=== PATIENT | male | born 1995 | race Caucasian/White ===

== ENCOUNTER 2024-03-09 09:55 | Outpatient (AMB) | payer OTHER, SELFPAY ==
--- NOTE | 2024-03-09 10:00 | MHC.PC.OV ---
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 ?? Prior PCP:? Dr Cuellar Last office visit/CPE:? CPE > 1 yr Acute issue(s):? Acid Reflux. Omeprazole helps but not fully. Saw GI. ?? PMHx:? GERD, SurgHx:?None FHx:? Dad: Early onset Dementia. Mom: HTN. SocHx: No Cig. Vapes occassioally. EtOH: Rarely 1-2 dr. MJ Daily edibles. No other drugs HPI Comments History of Present Illness Details Documentation assistance for Jovany Barrera MD, was provided by Tre Holland,? Supervisor Dog License Officer on 03/09/2024 at 10:45 AM EST. I, Dr. Barrera, have read, observed, and verified documentation. 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 1. Little interest or pleasure in doing things: not at all 2. Feeling down, depressed, or hopeless: not at all 3. Trouble falling or staying asleep, or sleeping too much: more than half the days 4. Feeling tired or having little energy: nearly every day 5. Poor appetite or overeating: not at all 6. Feeling bad about yourself - or that you are a failure or have let yourself or your family down: not at all 7. Trouble concentrating on things, such as reading the newspaper or watching television: more than half the days 8. Moving or speaking so slowly that other people could have noticed. Or the opposite - being so fidgety or restless that you have been moving around a lot more than usual: more than half the days 9. Thoughts that you would be better off or of hurting yourself in some way: not at all Total score: 9 Depression Screening Interpretation: Positive Depression Screening Done: Yes 49663 - PHQ-9 Billing: Yes Source: Developed by Drs. Keith Yee, Geena Cuevas, Noel Rolon and colleagues, with an educational sangeeta from [employer]. Thrive Questionnaire Date Thrive assessed: 03/02/24 I am a: Patient What is your living situation today?: I have a steady place to live Within the past 12 months, did the food you bought not last and you didn't have the money to get more?: Never true Within the past 12 months, did you worry whether your food would run out before you got money to buy more?: Never true Do you have trouble paying for medicines?: No Do you have trouble getting transportation to medical appointments?: No Do you have trouble paying your heating and electricity bill?: No Do you have trouble taking care of your child, family member or friend?: No Do you have trouble with day-to-day activities such as bathing, preparing meals, shopping, managing finances, etc.?: No Are you currently unemployed and looking for a job?: No Are you interested in more education?: No Please select the resources that you would like help with: None Currently or been in a relationship where the following occur: No concerns reported THRIVE Score: 0 AUDIT C Alcohol Use Questionnaire (AUDIT-C) 1. How often do you have a drink containing alcohol?: Monthly or less 2. How many drinks containing alcohol do you have on a typical day when you are drinking?: 1 or 2 3. How often do you have six or more drinks on one occasion?: Never Total Score: 1 REMINGTON-7 AMB Questionnaire REMINGTON-7 Date REMINGTON - 7 assessed: 03/09/24 Feeling nervous, anxious, or on edge: 2 = More than half the days Not being able to stop or control worryin = More than half the days Worrying too much about different things: 2 = More than half the days Trouble relaxin = Several days Being so restless that it is hard to sit still: 1 = Several days Becoming easily annoyed or irritable: 0 = Not at all Feeling afraid as if something awful might happen: 1 = Several days Total REMINGTON-7 score (0-4 normal; 5-9 mild; 10-14 moderate; 15-21 severe): 9 Source: Developed by Drs. Keith Yee, Geena Cuevas, Noel Rolon and colleagues, with an educational sangeeta from [employer]. REMINGTON-7 Assessment Billing REMINGTON-7 Assessment Tool: REMINGTON-7 Assessment 14249 Review of Systems Const Denies chills, Denies fatigue, Denies fever(s), Denies headache(s) and Denies weakness ENT Denies dizziness and Denies headache(s) Card Denies chest pain, Denies lightheadedness, Denies dyspnea and Denies other (Palpitations) Resp Denies cough, Denies dyspnea, Denies wheezing and Denies other ( shortness of breath) Musc Denies numbness and Denies tingling Neuro Denies dizziness, Denies headache(s), Denies numbness, Denies tingling, Denies paresthesias and Denies weakness Psych Denies anxiety and Denies depression Endo Denies fatigue Aller/Immun Denies wheezing Physical exam (Primary Care) Vital Signs: Last Vital Signs Pulse 73 03/09/24 10:05 BP 134/64 03/09/24 10:05 Pulse Ox 99 03/09/24 10:05 Oxygen Delivery Method Room Air 03/09/24 10:05 BMI result Body Mass Index 21.1 Tobacco/Smoking Status: Tobacco use Status Tobacco use date assessed 03/09/24 03/09/24 10:11 Patient Tobacco Use Status Never used Tobacco 03/09/24 10:11 e-Cigarette/Vaping Use Currently Using 03/09/24 10:11 PHQ-9: PHQ-9 Score PHQ-9: Total score 9 03/09/24 10:40 Depression Screening Interpretation: Positive Thrive Assessment: Date of Thrive Assessment Date Thrive assessed 03/02/24 03/09/24 10:11 Currently or been in a relationship where the following occur: No concerns reported Const General: no acute distress and well developed Nutritional Appearance: well nourished Orientation/consciousness: patient oriented x3 HENMT Head: Yes normocephalic and Yes atraumatic Eyes General: appearance normal, both eyes and all related structures Pupils: Equal, round and reactive pupils present EOM: EOMs intact bilaterally Resp Effort & Inspection: normal respiratory effort Auscultation: clear to auscultation bilaterally Cardio Rate: regular rate Rhythm: regular rhythm Heart sounds: S1 normal heart sound present, S2 normal heart sound present, no gallops, Murmur heart sound present (Faint 1/6 systolic murmur over the mitral region ) and no rubs Neuro General: patient oriented x3 and gait normal Cranial nerves: Yes Equal, round and reactive pupils present Psych Affect: normal affect Coding Level of Care Code New Pt Level 3 (82045) Diagnoses Anxiety with depression F41.8 Heart murmur R01.1 GERD (gastroesophageal reflux disease) K21.9 Laboratory exam ordered as part of routine general medical examination Z00.00 Additional Codes REMINGTON-7 Assessment Billing - REMINGTON-7 Assessment Tool: REMINGTON-7 Assessment 16765 ([id number]) PHQ-9 - 45173 - PHQ-9 Billing: Yes ([id number]) Assessment & Plan Assessment & Plan (1) Anxiety with depression: Code(s): F41.8 - Other specified anxiety disorders Category: Medical Plan: Screening?for?mild?anxiety?depression. Patient?is?using?MJ?every?day?I?advised?consider?that?this?may?be?affecting?mood We?can?follow-up?at?his?next?visit (2) Heart murmur: Code(s): R01.1 - Cardiac murmur, unspecified Category: Medical Plan: ? ?Faint?1/6?systolic?murmur?mitral?region Will?have?patient?hydrate?well?prior?to?next?visit?and?recheck. (3) GERD (gastroesophageal reflux disease): Code(s): K21.9 - Gastro-esophageal reflux disease without esophagitis Category: Medical Plan: Longstanding?history?of?GERD.??Patient?says?omeprazole?only?partially?manage?his?symptoms.?? He?has?seen?a?mysql developer?in?the?past?but?not?within?the?last?2?years. He?has?had?H?pylori?testing?in?the?past.??Unclear?if?was?on?omeprazole?time.??Will?recheck - will?have?him?hold?omeprazole?prior?test. Advised?lifestyle?changes. (4) Laboratory exam ordered as part of routine general medical examination: Code(s): Z00.00 - Encounter for general adult medical examination without abnormal findings Category: Medical Plan: Check?labs Orders: Orders Comprehensive [place]. Panel Fast Today Z00.00 - Encounter for general adult medical examination without abnormal findings CT NG by PCR Today Z11.3 - Encounter for screening for infections with a predominantly sexual mode of transmission Lipid Panel Today Z00.00 - Encounter for general adult medical examination without abnormal findings Hepatitis B,C Profile Today Z11.3 - Encounter for screening for infections with a predominantly sexual mode of transmission Syphilis Screen Today Z11.3 - Encounter for screening for infections with a predominantly sexual mode of transmission UA and rflx microscopic Today Z00.00 - Encounter for general adult medical examination without abnormal findings Microalbumin, Random (w Creat) Today I10 - Essential (primary) hypertension HIV Ab/Ag Today Z11.3 - Encounter for screening for infections with a predominantly sexual mode of transmission TSH reflex Free T4 Today Z00.00 - Encounter for general adult medical examination without abnormal findings H pylori Ag Stool Today K21.9 - Gastro-esophageal reflux disease without esophagitis Referrals Gastroenterology Referral K21.9 - Gastro-esophageal reflux disease without esophagitis Medications: New famotidine 20 mg PO BID 30 days 60 tabs 0RF
[2024-03-09 10:05] VITALS: BP 134/64; PULSE 73; O2SAT 99; BMI 21.1
== END 2024-03-09 11:00 | disposition home or self-care (01) ==
PROVIDERS: Visit Provider Family Medicine
DX: F41.8 Other specified anxiety disorders (principal); R01.1 Cardiac murmur, unspecified; K21.9 Gastro-esophageal reflux disease without esophagitis; Z00.00 Encounter for general adult medical examination without abnormal findings

== ENCOUNTER → 2024-03-09 09:55 | Outpatient (BNVA) | payer OTHER, SELFPAY | PROVIDERS: Visit Provider Family Medicine | DX: F41.8 Other specified anxiety disorders (principal); R01.1 Cardiac murmur, unspecified; K21.9 Gastro-esophageal reflux disease without esophagitis | CPT/HCPCS: 96127 ==

== ENCOUNTER 2024-06-25 08:53 | Outpatient (REF) | payer OTHER, SELFPAY ==
[2024-06-25 13:14] LABS: HBS Num1 1.33 mIU/mL (0-7.99); HBc Num1 0.15 S/CO (0.00-0.79); HBsAGNum1 0.41 S/CO (0.00-0.99); HIV AB/AG Nonreactive (Nonreactive); HIV Num 1 0.09 S/CO (0.00-0.99); Hepatitis B Core Antibody Nonreactive (Nonreactive); Hepatitis B Surface Antigen Negative (Negative); Syphilis Screen Nonreactive (Nonreactive); ~HepC Num1 0.11 S/CO (0.00-0.79); ~Hepatitis B Surface Antibody NONREACTIVE (Nonreactive); ~Hepatitis C Antibody Nonreactive (Nonreactive)
[2024-06-25 13:20] LABS: Alanine Aminotransferase 16 U/L (0-40); Albumin Level 4.7 g/dL (3.5-5.0); Alkaline Phosphatase 91 U/L (39-117); Anion Gap 12 (12-20); Aspartate Amino Transferase 21 U/L (5-37); Bilirubin Total 0.5 mg/dL (0.0-1.0); Blood Urea Nitrogen 17 mg/dL (9-16); Calcium 9.6 mg/dL (8.4-10.2); Carbon Dioxide 29 mmol/L (22-29); Chloride 106 mmol/L (96-108); Cholesterol 158 mg/dL (<200); Estimated Glomerular Filt Rate > 60; Glucose Fasting 86 mg/dL (60-99); HDL Cholesterol 47 mg/dL (>40); LDL Cholesterol Calculated 91 mg/dL (<100); Potassium 3.9 mmol/L (3.3-5.1); Sodium 143 mmol/L (135-145); Total Protein 7.2 g/dL (6.5-8.0); Triglycerides 100 mg/dL (<150)
[2024-06-25 13:42] LABS: TSH reflex Free T4 1.81 uIU/mL (0.32-4.0)
[2024-06-25 15:12] LABS: Appearance Urine Clear; Color Urine Yellow; Glucose Urine UA Negative (Negative); Leukocyte Esterase Urine Negative (Negative); Nitrite Urine Negative (Negative); PH 7.5 (5.0-9.0); Specific Gravity - Urine 1.015 (1.005-1.025); Urine Blood Negative (Negative); Urine Ketones Negative (Negative); Urine Protein Negative (Neg-Trace)
[2024-06-25 15:51] LABS: Creatinine Urine 110.69 mg/dL; Microalbumin Urine < 5.0 mg/L
[2024-06-25 16:45] LABS: CT PCR NOT DETECTED (Not Detect.); NG PCR NOT DETECTED (Not Detect.)
== END 2024-06-25 08:54 | disposition home or self-care (01) ==
LOC: HO.WFDLDS 08:53
PROVIDERS: Visit Provider Family Medicine
DX: Z00.00 Encounter for general adult medical examination without abnormal findings (principal); Z11.3 Encounter for screening for infections with a predominantly sexual mode of transmission; I10 Essential (primary) hypertension; K21.9 Gastro-esophageal reflux disease without esophagitis
CPT/HCPCS: 80053; 80061; 81003; 82570; 84443; 86704; 86706; 86780; 86803; 87338; 87340; 87389; 87491; 87591

== ENCOUNTER 2024-06-29 08:55 | Outpatient (AMB) | payer OTHER, SELFPAY ==
--- NOTE | 2024-06-29 09:19 | MHC.PC.OV ---
Vital Signs 06/29/24 09:24 Height 5 ft 8.7 in Weight 145 lb BMI 21.6 BP 100/60 Blood Pressure Location Lt brachial Position Sitting Respiration 12 Pulse 73 Pulse Source Pulse Oximeter Temp 98.4 F Temp Source Oral Pulse Oximetry (%) 98 Oxygen Delivery Method Room Air Intake Visit Reasons: CPE with f/u labs and health maint. 30 mins Intake Note: patient is scheduled for a cpe Nonprofit Financial Controller Required: No Allergies No Known Allergies Allergy (Verified 06/29/24 09:23) Medication List - Last Reconciled 06/29/24 by Jovany Barrera MD famotidine 20 mg PO BID 90 days Tobacco use date assessed: 06/29/24 Dental Screening Dental Screen Date: 06/29/24 Did you have a dental visit in the last 12 months?: Yes Did you have a dental problem in the last 6 months where you did not have access to dental care?: No Was dental information given to patient?: No HPI CPE with f/u labs and health maint. 30 mins HPI Details 28 y/o male presents for a CPE with f/u labs and health maintenance. Labs drawn 06/25/24. Reviewed labs with pt. Triglycerides 100. TC 158. LDL 91. HDL 47. Has complaints of dizziness. Has complaints of decreased libido. HPI Comments History of Present Illness Details Documentation assistance for Jovany Barrera MD, was provided by Tre Holland,? Easter Bunny on 06/29/2024 at 9:46 AM EST. I, Dr. Barrera, have read, observed, and verified documentation. ?? 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 1. Little interest or pleasure in doing things: not at all 2. Feeling down, depressed, or hopeless: not at all 3. Trouble falling or staying asleep, or sleeping too much: not at all 4. Feeling tired or having little energy: not at all 5. Poor appetite or overeating: not at all 6. Feeling bad about yourself - or that you are a failure or have let yourself or your family down: not at all 7. Trouble concentrating on things, such as reading the newspaper or watching television: not at all 8. Moving or speaking so slowly that other people could have noticed. Or the opposite - being so fidgety or restless that you have been moving around a lot more than usual: not at all 9. Thoughts that you would be better off or of hurting yourself in some way: not at all Total score: 0 Depression Screening Interpretation: Negative Depression Screening Done: Yes 20201 - PHQ-9 Billing: Yes Source: Developed by Drs. Keith Yee, Geena Cuevas, Noel Rolon and colleagues, with an educational sangeeta from [employer]. Thrive Questionnaire Date Thrive assessed: 06/29/24 I am a: Patient What is your living situation today?: I have a steady place to live Within the past 12 months, did the food you bought not last and you didn't have the money to get more?: Never true Within the past 12 months, did you worry whether your food would run out before you got money to buy more?: Never true Do you have trouble paying for medicines?: No Do you have trouble getting transportation to medical appointments?: No Do you have trouble paying your heating and electricity bill?: No Do you have trouble taking care of your child, family member or friend?: No Do you have trouble with day-to-day activities such as bathing, preparing meals, shopping, managing finances, etc.?: No Are you currently unemployed and looking for a job?: No Are you interested in more education?: No Please select the resources that you would like help with: None Currently or been in a relationship where the following occur: No concerns reported THRIVE Score: 0 AUDIT C Alcohol Use Questionnaire (AUDIT-C) 1. How often do you have a drink containing alcohol?: Monthly or less 2. How many drinks containing alcohol do you have on a typical day when you are drinking?: 1 or 2 3. How often do you have six or more drinks on one occasion?: Never Total Score: 1 Score Reviewed/Action Taken: Yes REMINGTON-7 AMB Questionnaire REMINGTON-7 Date REMINGTON - 7 assessed: 06/29/24 Feeling nervous, anxious, or on edge: 1 = Several days Not being able to stop or control worryin = Several days Worrying too much about different things: 1 = Several days Trouble relaxin = Not at all Being so restless that it is hard to sit still: 0 = Not at all Becoming easily annoyed or irritable: 0 = Not at all Feeling afraid as if something awful might happen: 0 = Not at all Total REMINGTON-7 score (0-4 normal; 5-9 mild; 10-14 moderate; 15-21 severe): 3 Source: Developed by Drs. Keith Yee, Geena Cuevas, Noel Rolon and colleagues, with an educational sangeeta from [employer]. REMINGTON-7 Assessment Billing REMINGTON-7 Assessment Tool: REMINGTON-7 Assessment 99122 Review of Systems Const Denies chills, Denies fatigue, Denies fever(s), Denies headache(s) and Denies weakness Eyes Denies change in vision ENT Denies dizziness, Denies headache(s), Denies hearing loss, Denies nasal congestion, Denies sinus pain, Denies sinus pressure and Denies sore throat Card Denies chest pain, Denies lightheadedness, Denies dyspnea and Denies other (palpitations) Resp Denies cough, Denies dyspnea and Denies wheezing GI Denies abdominal pain, Denies melena, Denies hematochezia, Denies change in bowel habits, Denies dyspepsia and Denies nausea Denies hematuria and Denies dysuria Musc Denies abnormal gait, Denies myalgias, Denies arthralgias, Denies numbness and Denies tingling Skin/Breast Denies rash, Denies unusual bruising and Denies wounds Neuro Denies abnormal gait, Denies dizziness, Denies headache(s), Denies memory loss, Denies numbness, Denies Sensory deficit (Neuro), Denies tingling and Denies weakness Psych Denies anxiety, Denies depression and Denies memory loss Endo Denies cold intolerance, Denies fatigue, Denies heat intolerance, Denies polydipsia and Denies polyuria Yair/Lymph Denies easy bleeding and Denies easy bruising Aller/Immun Denies wheezing Physical exam (Primary Care) Vital Signs: Last Vital Signs Temp 98.4 F 06/29/24 09:24 Pulse 73 06/29/24 09:24 Resp 12 06/29/24 09:24 BP 100/60 06/29/24 09:24 Pulse Ox 98 06/29/24 09:24 Oxygen Delivery Method Room Air 06/29/24 09:24 BMI result Body Mass Index 21.6 Tobacco/Smoking Status: Tobacco use Status Tobacco use date assessed 06/29/24 06/29/24 09:27 Patient Tobacco Use Status Never used Tobacco 06/29/24 09:21 e-Cigarette/Vaping Use Currently Using 06/29/24 09:21 PHQ-9: PHQ-9 Score PHQ-9: Total score 0 06/29/24 09:46 Depression Screening Interpretation: Negative Thrive Assessment: Date of Thrive Assessment Date Thrive assessed 06/29/24 06/29/24 09:27 Currently or been in a relationship where the following occur: No concerns reported Const General: no acute distress, well developed, alert and awake Nutritional Appearance: well nourished Orientation/consciousness: patient oriented x3 HENMT Head: Yes normocephalic and Yes atraumatic Ears: hearing grossly normal bilaterally and TM's normal bilaterally General nose exam: Normal external nose present and Normal nares present Mouth: Normal oral and palatal mucosa present and moist mucous membranes Teeth and gingiva: dentition normal Throat: Yes posterior oropharynx normal Eyes General: appearance normal, both eyes and all related structures Pupils: Equal, round and reactive pupils present and Pupil accommodation reflex normal EOM: EOMs intact bilaterally Neck Neck: Yes normal visual inspection, Yes no lymphadenopathy and Yes trachea midline Thyroid: Thyroid normal Carotids: no bruits Lymphatic: no lymphadenopathy noted Chest Chest palpation & inspection: normal inspection of the chest Resp Effort & Inspection: normal respiratory effort Auscultation: clear to auscultation bilaterally Cardio Rate: regular rate Rhythm: regular rhythm Heart sounds: S1 normal heart sound present, S2 normal heart sound present, no gallops, no murmurs and no rubs Bruits: no abdominal aortic bruits and no carotid bruits GI Palpation (GI): No Abdominal aortic bruit present, Soft to palpation, nontender, No hepatosplenomegaly present and No Rebound tenderness present Auscultation: normal bowel sounds General: Yes no CVA tenderness Back/Spine/Pelvis Back: no CVA tenderness Cervical Spine: cervical ROM normal and No Cervical spine tenderness Thoracic/Lumbar Spine: thoraco-lumbar ROM normal, No pain with thoraco-lumbar ROM, No thoracic spinal tenderness and No lumbar spinal tenderness Skin Lesions: no lesions Rashes: no rashes Trauma: no lacerations or abrasions Wounds: no wounds Nails: normal Neuro General: patient oriented x3 Cranial nerves: Yes Equal, round and reactive pupils present Cognition (Neuro): normal cognition Gait exam (Neuro): Normal gait present Motor exam (neuro): 5/5 motor strength present throughout Sensory Exam: No Sensory deficit (Neuro) Deep tendon reflexes (DTR's): Right patellar reflex intensity grade: 2+ and Left patellar reflex intensity grade: 2+ Extrem General: Yes normal to inspection and No edema Psych Appearance: grossly normal Affect: normal affect Attitude: cooperative Thought process: Normal thought process present Coding Level of Care Code Est Pt Level 3 (59010) Est Pt Prev Care 18-39y(00115) Diagnoses Adult general medical exam Z00.00 GERD (gastroesophageal reflux disease) K21.9 Dizziness R42 Decreased libido R68.82 Additional Codes REMINGTON-7 Assessment Billing - REMINGTON-7 Assessment Tool: REMINGTON-7 Assessment 47333 ([id number]) PHQ-9 - 56185 - PHQ-9 Billing: Yes ([id number]) Assessment & Plan Assessment & Plan (1) Adult general medical exam: Code(s): Z00.00 - Encounter for general adult medical examination without abnormal findings Category: Medical Plan: 28-year-old?male?presents?for?complete?physical?exam Exam?within?limits Encouraged?healthy?diet?active?lifestyle?with?exercise (2) GERD (gastroesophageal reflux disease): Code(s): K21.9 - Gastro-esophageal reflux disease without esophagitis Category: Medical Plan: GERD?symptoms?relieved?with?famotidine. Continue?famotidine Follow-up?with?Gastroenterology,?nontender?Concepcion as?recommended (3) Dizziness: Code(s): R42 - Dizziness and giddiness Category: Medical Plan: Postprandial?dizziness EKG: ?Normal?sinus?rhythm normal?axis,?early repolarization?likely?normal?in?thin?young?patient, no?hypertrophy,?no?ST-T-wave?changes. Referred?to?cardiology (4) Decreased libido: Code(s): R68.82 - Decreased libido Category: Medical Plan: Check?testosterone?levels Orders: Orders Testosterone, Free/Total Today R68.82 - Decreased libido Basic Metabolic Panel Today R42 - Dizziness and giddiness, Z00.00 - Encounter for general adult medical examination without abnormal findings Complete Blood Count Auto Diff Today R42 - Dizziness and giddiness, Z00.00 - Encounter for general adult medical examination without abnormal findings Medications: New famotidine 20 mg PO BID 90 days 180 tabs 3RF
[2024-06-29 09:24] VITALS: BP 100/60; PULSE 73; RESP 12; TEMP 36.9; O2SAT 98; BMI 21.6
--- OUTSIDE RECORDS SUMMARY | 2024-06-29 09:31 | XMS_ITS | Encounter Summary ---
Author Organization [facility] Address [address] [place] [address] Phone Care Team Providers Care Rotor Coil Taper Name Role Phone Keith Cowart MD Primary Care Provider [phone] Encounter Details Date Type Department Care Team (Late st Contact Info) Description 08/14/2017 Conversion Encounter [facility] [address] [place] [address] Social History Tobacco Use Types Packs/Day Years [...] on filedocumented in this encounter Care Teams Rotor Coil Taper Relationship Specialty Start Date End Date Keith Cowart MD [address] [place] [address] PCP - General Pediatrics 10/11/17 12/27/23 documented as of this encounter
--- OUTSIDE RECORDS SUMMARY | 2024-06-29 09:31 | XMS_ITS | Clinical Summary ---
Author Organization [facility] Address [address] [place] [address] Phone Care Team Providers Care Electrical Appliance Mechanic Name Role Phone Unavailable Primary Care Provider [...]
--- OUTSIDE RECORDS SUMMARY | 2024-06-29 09:32 | XMS_ITS ---
Author Organization [facility] Address [address] [place] [address] Care Team Providers Care Physical Metallurgist Name Role Phone Jovany Barrera Primary Care Provider Keith Christopher Unavailable [phone] Allergies Allergen (clinical drug ingredient) Drug/Non Drug [...] Status Risk Notes Problem Gastroesophageal reflux disease (123655471) GERD (gastroeso phageal reflux disease) (K21.9) Active [...] N/A Encounters Encounter Location Date Provider Diagnosis [facility] [address] [place] [address] 06/27/2024 Keith Concepcion GERD (gastroesophageal reflux disease) K21.9 and Dizziness R42 Assessments Encounter Date Diagnosis (ICD Code) Assessment Notes Treatment Notes Treatment Clinical Notes Section Notes 06/27/2024 GERD (gastroesophag eal reflux disease) (ICD-10 - K21.9) 06/27/2024 Dizziness (ICD-10 - R42) Ask Dr. Barrera about some Autonomic Testing with a Tilt Table Test with a Traveling Missionary or Neurologist for things like POTS disease that might be causing your post-meal symptoms of dizziness, brain fog, etc. Plan Of Treatment Treatment Notes Assessment Notes Dizziness Ask Dr. Barrera abo ut some Autonomic Testing with a Tilt Table Test with a Traveling Missionary or Neurologist for things like POTS disease that might be causing your post-meal symptoms of dizziness, brain fog, etc. Pending Test Test Name Order Date UPPER GI ENDOSCOPY 06/27/2024 Next Appt Details Provider Name:Keith Concepcion , 07/23/2024 01:40:00 PM, [address] [place] [address] , [place], [place], [id number], Progress Notes * OMEGA WASHINGTONOB:1995 (28 yo M)Acc No.[id number]:06/27/2024 Progress Notes Patient:?SHAVONNE WASHINGTON Provider:?Keith Concepcion MD :1995???Age:28 Y???Sex:Male Joseph e:06/27/2024 Address:[address] [place] [address] [address], [id number] Pcp:Jovany Barrera Subjective: * Chief Complaints: * ???1. Patient presents today for gerd. * Medical History:?Medical His tory Verified. * Family History:?Father: dece ased.?Mother: alive.? No family history of colon cancer or liver cancer. * Social History:?Tobacco Use:?Tobacco Control (Standard)?Tobacco use:?Nonsmoker.?Miscellaneous:?Marital status: single. 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 ???Drug/Alcohol:?AUDIT-C (Standard)?Did you have a drink containing [...] with a Tilt Table Test with a Traveling Missionary or Neurologist for things like POTS disease that might be causing your post-meal symptoms of dizziness,brain fog, etc.?? * Immunizations:? Influenza (Not administered - Refused: Patient decision) * Procedure Codes:?09465 UPPR GI ENDOSCOPY, DIAGNOSIS * * The named appointment provid er may or may not be the originator of this progress note, and it is not deemed complete until electronically signed by the appointment provider. Sign off status: Pending * Provider:?Keith Concepcion MD Date:? 025 Generated for Sandy morrison/Basilio/Wilfrid on:?06/29/2024 09:32 AM SHEYLAT
--- OUTSIDE RECORDS SUMMARY | 2024-06-29 09:32 | XMS_ITS | Patient Health Record ---
Author Organization [facility] Address [address] [place] [address] Care Team Providers Care Lawnmower Repair Mechanic Name Role Phone Jovany Barrera Primary Care Provider Unavailab Keith Mendoza Unavailable [phone] Allergies Allergen (clinical drug ingredient) Drug/Non Drug Allergy documented on EMR Reaction Allergy Type Onset Date Status Dust Mites Unknown Allergy Active Reason For Referral Referring Provider First Name Jovany Referring Provider Last Name Holly Referred Organization [facility] Referred Provider Keith Concepcion Referred Address [address] [facility],[place], [place],[address],[place] Referred Provider Specialty Gastroentero logy Referral Priority [...] Status Risk Notes Problem Gastroesophageal reflux disease (947075820) GERD (gastroeso phageal reflux disease) (K21.9) Active confirmed Vital Signs Temperature 97.5 degrees Fahrenheit 06/27/2024 Blood pressure diastolic 01 mm Hg 06/27/2024 Height 71 in 06/27/2024 Blood pressure systolic 001 mm Hg 06/27/2024 Weight 140.4 lbs 06/27/2024 BMI 19.58 kg/m2 06/27/2024 Procedures Procedure Date Ordered Date Performed Result Body Sit e UPPER GI ENDOSCOPY 06/27/2024 N/A Encounters Encounter Location Date Provider Diagnosis [facility] [address] [place] [address] 06/27/2024 Keith Concepcion GERD (gastroesophageal reflux disease) K21.9 and Dizziness R42 Assessments Encounter Date Diagnosis (ICD Code) Assessment Notes Treatment Notes Treatment Clinical Notes Section Notes 06/27/2024 GERD (gastroesophag eal reflux disease) (ICD-10 - K21.9) 06/27/2024 Dizziness (ICD-10 - R42) Ask Dr. Barrera about some Autonomic Testing with a Tilt Table Test with a Tile Designer or Neurologist for things like POTS disease that might be causing your post-meal symptoms of dizziness, brain fog, etc. Plan Of Treatment Pending Test Test Name Order Date UPPER GI ENDOSCOPY 06/27/2024 Next Appt Details Provider Name:Keith Concepcion , 07/23/2024 01:40:00 PM, [address] [place] [address] , [place], [place], [phone], Insurance Providers Payer Name Payer Address Payer Phone Subscriber Number Group Number Insured Name Patient Relationship to Insured Coverage Start Date Coverage End Date [employer] [address] [employer] [place] [id number] SHAVONNE WASHINGTON Self - patient is the insured
== END 2024-06-29 10:24 | disposition home or self-care (01) ==
LOC: HO.HMCFM 08:56
PROVIDERS: PCP Family Medicine; Visit Provider Family Medicine
DX: Z00.00 Encounter for general adult medical examination without abnormal findings (principal); K21.9 Gastro-esophageal reflux disease without esophagitis; R42 Dizziness and giddiness; R68.82 Decreased libido

== ENCOUNTER → 2024-06-29 08:55 | Outpatient (BNVA) | payer OTHER, SELFPAY | PROVIDERS: PCP Family Medicine; Visit Provider Family Medicine | DX: Z00.00 Encounter for general adult medical examination without abnormal findings (principal); K21.9 Gastro-esophageal reflux disease without esophagitis; R42 Dizziness and giddiness; R68.82 Decreased libido; Z79.899 Other long term (current) drug therapy | CPT/HCPCS: 93005; 96127 ==

== ENCOUNTER 2024-07-23 12:41 | Day surgery (SDC) | payer OTHER, SELFPAY ==
--- OUTSIDE RECORDS SUMMARY | 2024-06-28 12:26 | XMS_ITS | Clinical Summary ---
Author Organization [facility] Address [address] [place] [id number] Phone Care Team Providers Care Athletic Scout Name Role Phone Unavailable Primary Care Provider Unavailabl e Immunizations Immunization Administration Dates Next Due DTaP 08/22/2002, 0,01/27/1998,11/27,1997 HPV Vaccine 9 Valent 08/28/2015,03/27/2015,01/16 Hep B, ped/adol 04/24/1998,1997,1997 Hib (PRP-T) 11/12/1998, 8,1997,09/26 IPV 08/22/2002,1997,1997 Influenza, injectable, quadrivalent 03/30,04/02/2010,03/01/2006,02/19,01/19/2003 Influenza, injectable, quadr ivalent, preservative free 04/04/2008 Influenza, intranasal, quadrivalent 01/16/2015,1 04/11/2012,02/02/2007 MMR 08/14/2001,11/12/1998 Meningococcal Conj (Menactra) MCV4P 08/09/2013,0 09/06/2008 OPV 05/26/1999 Tdap 09/01/2007 Varicella 09/01/2007,07/28/1998 Family History Relation Name Status Comments Father Alzheimer Maternal Grandfather dalia cassidy..tobacco diagnosed with Hypertension Maternal Grandmother fell of f the roof of her house 2005... Mother Alive healthy Other Alive Siblings: healt hy Paternal Grandfather cancer, lung Paternal Grandmother healthy ...assisted living in [place] and some heart trouble. diagnosed with DMII WO CMP NT ST UNCNTR Social History Tobacco Use Types Packs/Day Years Used Date Smoking Tobacco: Never Assessed Sex and Gender Information Value Date Recorded Sex Assigned at Not on file Legal Sex Male 6:16 PM EDT Gender Identity Not on file Sexual Orientation Not on file Last Filed Vital Signs Vital Sign Reading Time Taken Comments Blood Pressure 114/66 02/26/2016 12:00 AM EST Pulse - - Temperature 36.9 ??C (98.4 ??F) 06/20/2013 12:00 AM E DT Respiratory Rate - - Oxygen Saturation 100% 06/20/2013 12:00 AM EDT Inhaled Oxygen Concentration - - Weight 51.8 kg (114 lb 3.2 oz) 02/26/2016 12:00 AM EST Height 178.4 cm (5' 10.25 ) 02/26/2016 12:00 AM EST Body Mass Index 16.27 02/26/2016 12:00 AM EST Plan of Treatment Health Maintenance Due Date Last Done Comments DTaP,Tdap,and Td Vaccines (7 - Td or Tdap) 08/31/2017 09/01/2007, 08/22/2002, 05/26/1999, Additional history exists Influenza Vaccines (#1) 2023 01/17/20 15, 02/09/2013, 04/27/2012, Additional history exists COVID-19 Vaccine ( season) 2023 Hepatitis B Vaccines Completed 04/24/1998, 1997, 1997 HIB Vaccines Completed 11/12/1998, 04/1997, 1997, Additional history exists MMR Vaccines Completed 08/14/2001, 11/12/1998 IPV Vaccines Completed 08/22/2002, 04/29, 1997, Additional history exists Varicella Vaccines Completed 09/01/2007, 07/28/1998 Meningococcal Vaccine Completed 08/09/2013, 009 HPV Vaccines Completed 08/28/2015, 02/27, 01/16/2015 Hepatitis A Vaccines Aged Out No long er eligible based on patient's age to complete this topic Men B Vaccine Aged Out No longer elig ible based on patient's age to complete this topic Pneumococcal Vaccine Aged Out No long er eligible based on patient's age to complete this topic Insurance [employer]
--- OUTSIDE RECORDS SUMMARY | 2024-06-28 12:26 | XMS_ITS | Encounter Summary ---
Author Organization [facility] Address [address] [place] [address] Phone Care Team Providers Care Director Food And Beverage Name Role Phone Keith Cowart MD Primary Care Provider [phone] Encounter Details Date Type Department Care Team (Late st Contact Info) Description 08/14/2017 Conversion Encounter [facility] [address] [place] [address] Social History Tobacco Use Types Packs/Day Years Used Date Smoking Tobacco: Never Assessed Sex and Gender Information Value Date Recorded Sex Assigned at Not on file Legal Sex Male 6:16 PM EDT Gender Identity Not on file Sexual Orientation Not on file documented as of this encounter Plan of Treatment Not on file documented as of this encounter Visit Diagnoses Not on filedocumented in this encounter Care Teams Director Food And Beverage Relationship Specialty Start Date End Date Keith Cowart MD [address] [place] [address] PCP - General Pediatrics 10/11/17 12/27/23 documented as of this encounter
--- OUTSIDE RECORDS SUMMARY | 2024-06-28 12:26 | XMS_ITS ---
Author Organization [facility] Address [address] [place] [address] Care Team Providers Care Press Technician Name Role Phone Jovany Barrera Primary Care Provider Keith Christopher Unavailable [phone] Allergies Allergen (clinical drug ingredient) Drug/Non Drug Allergy documented on EMR Reaction Allergy Type Onset Date Status Dust Mites Unknown Allergy Active REASON FOR VISIT Patient presents today for gerd Medications Medication SIG (Take, Route, Fr equency, Duration) Notes Start Date End Date Status Famotidine 20 MG TAKE 1 TABLET BY ALEJANDRA TH TWICE DAILY Oral for 30 Days Active Tadalafil 10 MG 1 tablet as needed O rally Once a day for 30 day(s) 06/27/2024 Active Immunizations Vaccine Route Administration Date Status Comme nts Influenza Unknown 06/27/2024 Refused Social History Tobacco Use: Social History Observation Description Date Details (start date - stop date) Never Smoker NA - NA Tobacco Control (Standard) Question Answer Notes Tobacco use: Nonsmoker AUDIT-C (Standard) Question Answer Notes Did you have a drink contain ing alcohol in the past year? Yes How often did you have a dri nk containing alcohol in the past year? 2 to 4 times a month (2 points) How many drinks did you have on a typical day when you were drinking in the past year? 1 or 2 drinks (0 point) How often did you have six o r more drinks on one occasion in the past year? Never (0 point) Points 2 Interpretation Negative Problems Problem Type SNOMED Code ICD Code Onset Dates Problem Status W/U Status Risk Notes Problem Gastroesophageal reflux disease (302563774) GERD (gastroeso phageal reflux disease) (K21.9) Active confirmed Vital Signs Temperature 97.5 degrees Fahrenheit 06/28/19 25 Blood pressure systolic 001 mm Hg 06/28/19 25 Blood pressure diastolic 01 mm Hg 025 Height 71 in 06/27/2024 Weight 140.4 lbs 06/27/2024 BMI 19.58 kg/m2 06/27/2024 Procedures Procedure Date Ordered Date Performed Result Body Sit e UPPER GI ENDOSCOPY 06/27/2024 N/A Encounters Encounter Location Date Provider Diagnosis [facility] [address] [place] [address] 06/27/2024 Keith Concepcion GERD (gastroesophageal reflux disease) K21.9 and Dizziness R42 Assessments Encounter Date Diagnosis (ICD Code) Assessment Notes Treatment Notes Treatment Clinical Notes Section Notes 06/27/2024 GERD (gastroesophag eal reflux disease) (ICD-10 - K21.9) 06/27/2024 Dizziness (ICD-10 - R42) Ask Dr. Barrera about some Autonomic Testing with a Tilt Table Test with a Slot Operations Manager or Neurologist for things like POTS disease that might be causing your post-meal symptoms of dizziness, brain fog, etc. Plan Of Treatment Treatment Notes Assessment Notes Dizziness Ask Dr. Barrera abo ut some Autonomic Testing with a Tilt Table Test with a Slot Operations Manager or Neurologist for things like POTS disease that might be causing your post-meal symptoms of dizziness, brain fog, etc. Pending Test Test Name Order Date UPPER GI ENDOSCOPY 06/27/2024 Next Appt Details Provider Name:Keith Concepcion , 07/23/2024 01:40:00 PM, [address] [place] [address] , [place], [place], [phone], Progress Notes * OMEGA WASHINGTONOB:1995 (28 yo M)Acc No.[id number]:06/27/2024 Progress Notes Patient:?SHAVONNE WASHINGTON Provider:?Keith Concepcion MD :1995???Age:28 Y???Sex:Male Joseph e:06/27/2024 Address:[address] [place] [address] [address], [id number] Pcp:Jovany Barrera Subjective: * Chief Complaints: * ???1. Patient presents today for gerd. * Medical History:?Medical His tory Verified. * Family History:?Father: dece ased.?Mother: alive.? No family history of colon cancer or liver cancer. * Social History:?Tobacco Use:?Tobacco Control (Standard)?Tobacco use:?Nonsmoker.?Miscellaneous:?Marital status: single. 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 ???Drug/Alcohol:?AUDIT-C (Standard)?Did you have a drink containing alcohol in the past year??Yes,?How often did you have a drink containing alcohol in the past year??2 to 4 times a month (2 points),?How many drinks did you have on a typical day when you were drinking in the past year??1 or 2 drinks (0 point),?How often did you have six or more drinks on one occasion in the past year??Never (0 point),?Points?2,?Interpretation?Negative.? * Medications:?Taking Famotidi ne 20 MG Tablet TAKE 1 TABLET BY MOUTH TWICE DAILY Oral , Taking Tadalafil 10 MG Tablet 1 tablet as needed Orally Once a day * Allergies:?Dust Mites. Objective: * Vitals:?Wt:140.4lbs, Ht: 71 in, BMI:19.58Index, BP:001/01mm Hg, Temp:97.5, Ht- cm: 180.34, Wt-k.69. Assessment: * Assessment: 1.?GERD (gastroesophageal re flux disease) - K21.9 (Primary)???2.?Dizziness - R42??? Plan: * Treatment: 2.?Dizziness? Notes: Ask Dr. Barrera about some Autonomic Testing with a Tilt Table Test with a Slot Operations Manager or Neurologist for things like POTS disease that might be causing your post-meal symptoms of dizziness,brain fog, etc.?? * Immunizations:? Influenza (Not administered - Refused: Patient decision) * Procedure Codes:?74981 UPPR GI ENDOSCOPY, DIAGNOSIS * * The named appointment provid er may or may not be the originator of this progress note, and it is not deemed complete until electronically signed by the appointment provider. Sign off status: Pending * Provider:?Keith Concepcion MD Date:? 025 Generated for Sandy morrison/Basilio/Wilfrid on:?06/28/2024 12:25 PM EDT
--- OUTSIDE RECORDS SUMMARY | 2024-06-28 12:26 | XMS_ITS | Patient Health Record ---
Author Organization [facility] Address [address] [place] [address] Care Team Providers Care Cash Posting Representative Name Role Phone Jovany Barrera Primary Care Provider Unavailab Keith Mendoza Unavailable [phone] Allergies Allergen (clinical drug ingredient) Drug/Non Drug Allergy documented on EMR Reaction Allergy Type Onset Date Status Dust Mites Unknown Allergy Active Reason For Referral Referring Provider First Name Jovany Referring Provider Last Name Holly Referred Organization [facility] Referred Provider Keith Concepcion Referred Address [address] [facility] [place],[address],[place], [place],[address],[place] Referred Provider Specialty Gastroentero logy Referral Priority Routine Medications Medication SIG (Take, Route, Fr equency, [...] Status Risk Notes Problem Gastroesophageal reflux disease ([id number]) GERD (gastroeso phageal reflux disease) (K21.9) Active confirmed Vital Signs Temperature 97.5 degrees Fahrenheit 06/27/2024 Blood pressure diastolic 01 mm Hg 06/27/2024 Height 71 in 06/27/2024 Blood pressure systolic 001 mm Hg 06/27/2024 Weight 140.4 lbs 06/27/2024 BMI 19.58 kg/m2 06/27/2024 Procedures Procedure Date Ordered Date Performed Result Body Sit e UPPER GI ENDOSCOPY 06/27/2024 N/A Encounters Encounter Location Date Provider Diagnosis [facility] [address] [place] [address] 06/27/2024 Keith Concepcion GERD (gastroesophageal reflux disease) K21.9 and Dizziness R42 Assessments Encounter Date Diagnosis (ICD Code) Assessment Notes Treatment Notes Treatment Clinical Notes Section Notes 06/27/2024 GERD (gastroesophag eal reflux disease) (ICD-10 - K21.9) 06/27/2024 Dizziness (ICD-10 - R42) Ask Dr. Barrera about some Autonomic Testing with a Tilt Table Test with a Program Or Project Administrator or Neurologist for things like POTS disease that might be causing your post-meal symptoms of dizziness, brain fog, etc. Plan Of Treatment Pending Test Test Name Order Date UPPER GI ENDOSCOPY 06/27/2024 Next Appt Details Provider Name:Keith Concepcion , 07/23/2024 01:40:00 PM, [address] [place] [address] , [place], [place], [phone], Insurance Providers Payer Name Payer Address Payer Phone Subscriber Number Group Number Insured Name Patient Relationship to Insured Coverage Start Date Coverage End Date [employer] [address] [place] [id number] SHAVONNE WASHINGTON Self - patient is the insured
[2024-07-19 14:41] VITALS: BMI 21.6
--- NOTE | 2024-07-20 09:05 | P.CONAN_ITS ---
Documented by User: Taryn Ballard NP 07/20/24 09:06 HPI - Anesthesia Eval Consult details Narrative: 28yo M for Upper Endoscopy ? POTS - referred to cardiology, appt pending [facility] Active Problems Active Problems: All Active Problems Decreased libido (Acute) Dizziness (Acute) Adult general medical exam (Acute) Heart murmur (Acute) GERD (gastroesophageal reflux disease) (Acute) Laboratory exam ordered as part of routine general medical examination (Acute) Anxiety with depression (Acute) Past Medical History Medical History (Updated 07/19/24 @ 14:43 by Shiloh Clement RN) Anxiety and depression Murmur GERD (gastroesophageal reflux disease) Family History Family History Paternal Grandmother Diabetes Surgical History Surgical History (Updated 07/23/24 @ 13:18 by Brisa Warren RN) History of surgery Social History Social History Housing: Apartment Alcohol intake: current Patient Tobacco Use Status: Never used Tobacco e-Cigarette/Vaping Use: Currently Using Second Hand Smoke Exposure: No Use of substances other than those prescribed or required for medical reasons: Yes Substance Use Type: Marijuana Advance Directives: No Advance Directives Information Provided: Yes Poor oral hygiene: No service: No Current occupational status: employed 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 Current occupational exposures/hazards: No Cognitive needs: No Hearing needs: No Vision needs: No Meds Allergies Allergy/AdvReac Type Severity Reaction Status Date / Time No Known Allergies Allergy Verified 06/29/24 09:23 Exam Height,Weight and Vital Signs: Height 5 ft 8.7 in Weight 65.771 kg Pertinent Lab Results Pertinent Lab Results: Laboratory Tests 06/25/24 08:56 Sodium 143 Potassium 3.9 Chloride 106 Carbon Dioxide 29 BUN 17 H Creatinine 1.15 Narrative Narrative: EKG within normal limits per 06/2024 PCP note - tracing unavailable Assessment and Plan Assessment Anesthesia Assessment: Chart Reviewed Documented by User: Robe Toscano MD 07/23/24 15:16 [facility] Past Medical History Medical History (Updated 07/19/24 @ 14:43 by Shiloh Clement RN) Anxiety and depression Murmur GERD (gastroesophageal reflux disease) Family History Family History Paternal Grandmother Diabetes Family history of problems with anesthesia: No Surgical History Surgical History (Updated 07/23/24 @ 13:18 by Brisa Warren RN) History of surgery History of Problems with Anesthesia: No Social History Social History Housing: Apartment Alcohol intake: current Patient Tobacco Use Status: Never used Tobacco e-Cigarette/Vaping Use: Currently Using Second Hand Smoke Exposure: No Use of substances other than those prescribed or required for medical reasons: Yes Substance Use Type: Marijuana Advance Directives: No Advance Directives Information Provided: Yes Poor oral hygiene: No service: No Current occupational status: employed 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 Current occupational exposures/hazards: No Cognitive needs: No Hearing needs: No Vision needs: No Meds Allergies Allergy/AdvReac Type Severity Reaction Status Date / Time No Known Allergies Allergy Verified 06/29/24 09:23 Exam Airway Mallampati Class: II TM Dist: >3cm Denture: Upper Assessment and Plan Assessment Anesthesia Assessment: Anesthesia Plan Discussed Final Anesthetic Review Family History of Problems with Anesthesia: No History of Problems with Anesthesia: No NPO: Yes ASA Class: II Final Preanesthetic Review: No Changes in Pt Med Stat, Meds/Allgs Chart Reviewed, Consent Obtained/Reviewed and Anes Risks/Benef Reviewed Patient Risk: Low Procedure Risk: Low Anesthetic Plan Anesthetic Plan: TIVA Disposition: Standard PACU
[2024-07-23 13:12] VITALS: BMI 19.6
[2024-07-23 13:26] VITALS: BP 122/72; PULSE 67; RESP 16; TEMP 37.1; O2SAT 97
[2024-07-23] MEDS: Lactated Ringers 1,000 ML 100 ML IVCONT (13:45)
[2024-07-23 15:18] VITALS: BP 105/50; PULSE 64; RESP 17; TEMP 36.3; O2SAT 95
--- NOTE | 2024-07-23 15:23 | PM.OP ---
Brief Operative Note Date of Service: 07/23/24 Pre-op diagnosis: GERD Post-op diagnosis: other (Normal EGD) Procedure: EGD with biopsies Surgeon: Keith Concepcion MD Anesthesia: MAC Was an Geospatial Information Technologist used for this Procedure?: No Estimated blood loss (mL): 2.0 Pathology: other (A. Descending duodenum B. Gastric antrum C. EG Junction at 40cm) Condition: stable Disposition: PACU
[2024-07-23 15:33] VITALS: BP 111/60; PULSE 59; RESP 16; TEMP 36.7; O2SAT 98
[2024-07-23 15:48] VITALS: BP 114/64; PULSE 59; RESP 20; TEMP 36.7; O2SAT 98
--- NOTE | 2024-07-23 22:07 | OP_ITS ---
DATE OF SERVICE: 07/23/2024 SURGEON: Keith Concepcion MD INDICATIONS: The patient presents for evaluation of gastroesophageal reflux as well as postprandial symptoms of weakness and lightheadedness. Full consent has been obtained from him for this, including risks of bleeding and perforation. PREOPERATIVE DIAGNOSIS: Gastroesophageal reflux. POSTOPERATIVE DIAGNOSIS: PROCEDURE PERFORMED: Esophagogastroduodenoscopy with biopsies. ESTIMATED BLOOD LOSS: COMPLICATIONS: ANESTHESIA: Medication used, monitored anesthesia care. ASSISTANTS: SPECIMENS: POSTOPERATIVE DIAGNOSES: Gastroesophageal reflux, rule out celiac disease, rule out Helicobacter pylori, normal upper endoscopy. DESCRIPTION OF PROCEDURE: The patient was placed in the left lateral decubitus position. The Olympus video gastroscope was passed in the posterior oropharynx and upper esophagus under direct vision. The scope was passed slowly into the distal esophagus. The gastroesophageal junction appeared normal at 40 cm. There was no sign of any esophagitis nor Maldonado mucosa. The scope entered the stomach. There was no appreciable hiatal hernia. The scope was advanced to the pylorus, and the duodenum was cannulated to the descending portion. The duodenum including the bulb appeared normal without mass or ulceration. Biopsies were obtained from the 2nd and 3rd portions of duodenum. The scope was withdrawn back to the stomach. The gastric antrum and body appeared normal with good peristalsis. The scope was retroflexed visualizing the proximal stomach carefully, which appeared normal, without any sign of mass or ulceration. The scope was straightened. Biopsies were obtained from the gastric antrum. The scope was withdrawn back to the esophagus. The esophageal mucosa appeared normal. I did obtain biopsies of the EG junction at 40 cm. Again, there was no sign of any esophagitis nor Maldonado mucosa. The esophageal mucosa appeared completely normal. The scope was withdrawn from the patient. He tolerated the procedure well and was returned to the recovery area in stable condition. IMPRESSION: Normal upper endoscopy. Rule out celiac disease and Helicobacter pylori. PLAN: The results of biopsies will be checked. He has been advised to continue his famotidine 20 mg once or twice a day as needed for reflux. It appears that he will be having a cardiology evaluation for possible POTS or other autonomic condition that might be contributing to his postprandial symptoms. He will see me in the fall for a followup visit. He was advised to call sooner as needed. MD LESLIE Suh/DONYA / [phone]
== END 2024-07-23 15:30 | disposition home or self-care (01) ==
PROVIDERS: PCP Family Medicine; Visit Provider Internal Medicine
PROC: 0DJ08ZZ Inspection of Upper Intestinal Tract, Via Natural or Artificial Opening Endoscopic (ICD-10-PCS; CPT 43235; principal; 2024-07-23 14:30)
DX: K20.90 Esophagitis, unspecified without bleeding (principal); K21.9 Gastro-esophageal reflux disease without esophagitis; Z79.899 Other long term (current) drug therapy
CPT/HCPCS: 43239; 88305; 88313; 88342; J2704

== ENCOUNTER 2024-08-16 08:47 | Outpatient (REF) | payer OTHER, SELFPAY ==
--- OUTSIDE RECORDS SUMMARY | 2024-08-16 08:58 | XMS_ITS | Encounter Summary ---
Author Organization [facility] Address [address] [place] [address] Phone Care Team Providers Care Poultry Processing Supervisor Name Role Phone Keith Cowart MD Primary Care Provider [phone] Encounter Details Date Type Department Care Team (Late st Contact Info) Description 08/14/2017 Conversion Encounter [facility] [address] [place] [address] Social History Tobacco Use Types Packs/Day Years [...] on filedocumented in this encounter Care Teams Poultry Processing Supervisor Relationship Specialty Start Date End Date Keith Cowart MD [address] [place] [address] PCP - General Pediatrics 10/11/17 12/27/23 documented as of this encounter
--- OUTSIDE RECORDS SUMMARY | 2024-08-16 08:58 | XMS_ITS | Clinical Summary ---
Author Organization [facility] Address [address] [place] [address] Phone Care Team Providers Care Experimental Welder Name Role Phone Unavailable Primary Care Provider [...]
--- OUTSIDE RECORDS SUMMARY | 2024-08-16 08:59 | XMS_ITS ---
Author Organization [facility] Address [address] [place] [address] Care Team Providers Care Pockets And Pieces Necktie Operator Name Role Phone Jovany Barrera Primary Care Provider Unavailab Keith Mendoza Unavailable [phone] REASON FOR VISIT please schedule f/u with Dr. Concepcion Encounters Encounter Location Date Provider Diagnosis [facility] [address] [place] [address] 07/30/2024 Keith Concepcion Plan Of Treatment Next Appt Details Provider Name:Keith Concepcion , 01/08/2025 09:40:00 AM, [address], [address], [place], [address], Progress Notes * OMEGA WASHINGTONOB:1995 (29 yo M)Acc No.[id number]:07/30/2024 Patient:?SHAVONNE WASHINGTON :1995???Age:29 Y???Sex:Male Address:[address] [place] [address] [address], [place] [address] * true * Date:? Generated for Printi ng/Famaxig/eTransmitting on:?08/16/2024 08:58 AM EDT
--- OUTSIDE RECORDS SUMMARY | 2024-08-16 08:59 | XMS_ITS | Encounter Summary ---
Author Organization [facility] Address [address] [place] [address] Care Team Providers Care Client Renewal Specialist Name Role Phone Torsten Wong MD Primary Care Provider Bryant Rowan MD Primary Care Provider [phone] Encounter Details Date Type Department Care Team Description 01/25/2019 Release of Information Medical Records [address] [place] [address] Abstract, Provider Social History Tobacco Use Types Packs/Day Years Used Date Smoking Tobacco: Never Smokeless Tobacco: Never Alcohol Use Standard Drinks/Week Comments No 0 (1 standard drink = 0.6 oz pur e alcohol) Sex Assigned at Date Recorded Not on file documented as of this encounter Nursing Notes * Dottie Krause - 01/25/2019 8:58 AM EDT AUTHORIZATION TO OBTAIN RECORDS MAILED TO [facility]. documented in this encounter Plan of Treatment Not on file documented as of this encounter Visit Diagnoses Not on filedocumented in this encounter Care Teams Client Renewal Specialist Relationship Specialty Start Date End Date Torsten Wong MD PCP - General Internal Medicine 11/30/18 01/08/21 Bryant Veras MD [address] [place] [address] PCP - General Internal Medicine 01/09/21 documented as of this encounter
--- OUTSIDE RECORDS SUMMARY | 2024-08-16 08:59 | XMS_ITS | Patient Health Record ---
Author Organization [facility] Address [address] [place] [address] Care Team Providers Care Tobacco Sorter Name Role Phone Jovany Barrera Primary Care Provider Unavailab Keith Mendoza [phone] Allergies Allergen (clinical drug ingredient) Drug/Non Drug Allergy documented on EMR Reaction Allergy Type Onset Date Status Dust Mites Unknown Allergy Active Results Component Value Reference Range Notes Pathology (Not yet reviewed by provider) Interpretation: Performing Lab:[facility], [address] [place] [phone] Notes/Report: Name: Pardeep Montenegro Age/Sex: 28/M : 1995 Unit#: [id number] Attend Dr: Keith Concepcion MD Re07/23/24 Status : [facility] Location: [facility] Disch: SPEC : [id number] RECD : 07/24/24 STATUS: [facility] NUM: [id number] [place]: 07/23/[address] [facility] [address]: Keith Concepcion MD ENTERED: 07/24/24 SP TYPE: Surgical OTHR DR: Jovany Barrera MD ORDERED: HE Stain/9, Gross Micro L4/3, IHC, Special st. 2/3, H. pylori, AB/PAS/3 Diagnosis A. Duodenum, descend ing, biopsy: Small intestinal mucosa within normal limits. B. Stomach, antrum, biopsy: Antral-type and oxyntic mucosa with mild chronic inactive inflammation; no Hel icobacter organisms seen. C. EG junction, 40 cm, biopsy: - Cardiofundic-type mucosa with moderate chronic inactive inflammation and multilayered epithel ium; no fully-developed intestinal metaplasia seen. - Active esophagitis (maximum eosinophil count 7 per high powered field). Clinical History Pre-Op Dx: GERD Post-Op Dx: Normal u pper endoscopy Microscopic Description A-C. Microscopic sec tions examined. No fully-developed metaplastic changes are seen, supported by AB/PAS stains (A, B and C); no Helicobacter organisms are seen, supported by H. pylori immunostain (B). Material Received A. Descending duoden um, rule out celiac B. Gastric antrum C. EG junction @ 40 Gross Description Received in three parts. Part A: Received in formalin labeled ?descending duodenum, rule out celiac? are 4 fajardo-pink irregular tissue fra gments each measuring 0.35 cm, submitted in toto in a cassette A Part B: Received in formalin labeled ?gastric antrum? are 3 fajardo irregular tissue fragments each measuring 0.25 cm, submitted in toto in a cassette labeled B. Part C: Received in formalin labeled ?EG junction at 40? are 2 fajardo irregular tissue fragments each measu ring 0.3 cm, submitted in toto in a cassette labeled C. CEDS Special studies orde red and performed: Immunostain for H. pylori on B; AB/PAS stains on A, B and C CONTINUED ON NEXT PAGE Name: Pardeep Montenegro Age/Sex: 28/M : 1995 Unit#: [id number] Attend Dr: Keith Concepcion MD Re07/23/24 Status : [facility] Location: [facility] Disch: SPEC : [id number] RECD : 07/24/24 STATUS: [facility] NUM: [id number] [place]: 07/23/[address] [facility] [address]: Keith Concepcion MD ENTERED: 07/24/24 35 SP TYPE: Surgical OTHR DR: Jovany Barrera MD ORDERED: HE Stain/9, Gross Micro L4/3, IHC, Special st. 2/3, H. pylori, AB/PAS/3 Copies To: Jovany Barrera MD [facility] Family Medicine [address] [place] [address] Keith Concepcion MD [address] [place] [address] Signed (si gnature on file) Jovany Gates MD 07/26/24 [id number] END OF REPORT Reason For Referral Referring Provider First Name Jovany Referring Provider Last Name Holly Referred Organization [facility] Referred Provider Keith Concepcion Referred Address [address] [place] [address],[facility] [address],[place], [place],[address], Referred Provider Specialty Gastroentero logy Referral Priority Routine Medications Medication SIG (Take, Route, Fr equency, Duration) Notes Start Date End Date Status Famotidine 20 MG TAKE 1 TABLET BY ALEJANDRA TWICE DAILY Oral for 30 Days Active [...] Status Risk Notes Problem Gastroesophageal reflux disease ([id number]) GERD (gastroeso phageal reflux disease) (K21.9) Active confirmed Vital Signs Temperature 97.5 degrees Fahrenheit 06/27/2024 Blood pressure diastolic 01 mm Hg 06/27/2024 Height 71 in 06/27/2024 Blood pressure systolic 001 mm Hg 06/27/2024 Weight 140.4 lbs 06/27/2024 BMI 19.58 kg/m2 06/27/2024 Procedures Procedure Date Ordered Date Performed Result Body Sit e UPPER GI ENDOSCOPY 06/27/2024 N/A Encounters Encounter Location Date Provider Diagnosis [facility] Outpatient [address] [place] [id number] 07/23/2024 Keith Concepcion Gastro-esophageal reflux disease without esophagitis K21.9 ; Weakness R53.1 and Dizziness R42 [facility] [address] [place] [address] 06/27/2024 Keith Concepcion GERD (gastroesophageal reflux disease) K21.9 and Dizziness R42 [facility] [address] [place] [address] 07/30/2024 Keith Concepcion Assessments Encounter Date Diagnosis (ICD Code) Assessment Notes Treatment Notes Treatment Clinical Notes Section Notes 07/23/2024 Gastro-esophage al reflux disease without esophagitis (ICD-10 - K21.9) 07/23/2024 Weakness (ICD-10 - R53.1) 06/27/2024 GERD (gastroesophage al reflux disease) (ICD-10 - K21.9) Overall, Pardeep appears quite well. In regard to his longstanding reflux that has required acid suppression and his young age, I did recommend an upper endoscopy for evaluation to rule out any component of significant esophagitis, Maldonado's esophagus, and/or a hiatal hernia. He does not have any particular risk factors for significant reflux disease. Full consent has been obtained from him for the upper endoscopy, including risks of bleeding and perforation. The procedure will be done with monitored anesthesia care. Depending upon the endoscopic findings and his clinical course, we may want him to try a PPI again and/or consider hiatal hernia surgery if indeed he is found to have any component of a significant hiatal hernia. In regard to his other symptoms of the postprandial lightheadedness , weakness, and brain fog , I advised him that I do not have any definitive explanation for that other than to consider some type of possible autonomic dysfunction with the normal shunting of blood flow to the GI tract after his meal but without any ability to have a normal compensatory autonomic reflex to provide adequate blood flow elsewhere in his body. I did advise him to discuss this with you and to consider further evaluation by either a neurologist or business machines teacher to do some autonomic testing such as a tilt table test. Some patients may have an idiopathic neuropathy that contributes to this as well and might be diagnosed by a skin biopsy. Again, I did advise him to review all of this with you to consider these options. Pardeep was comfortable with this plan. Thank you again for allowing me to participate in Pardeep's care. I shall continue to keep you advised of his progress. 06/27/2024 Dizziness (ICD-10 - R42) Ask Dr. Barrera about some Autonomic Testing with a Tilt Table Test with a Director Work or Neurologist for things like POTS disease that might be causing your post-meal symptoms of dizziness, brain fog, etc. Overall, Pardeep appears quite well. In regard to his longstanding reflux that has required acid suppression and his young age, I did recommend an upper endoscopy for evaluation to rule out any component of significant esophagitis, Mladonado's esophagus, and/or a hiatal hernia. He does not have any particular risk factors for significant reflux disease. Full consent has been obtained from him for the upper endoscopy, including risks of bleeding and perforation. The procedure will be done with monitored anesthesia care. Depending upon the endoscopic findings and his clinical course, we may want him to try a PPI again and/or consider hiatal hernia surgery if indeed he is found to have any component of a significant hiatal hernia. In regard to his other symptoms of the postprandial lightheadedness , weakness, and brain fog , I advised him that I do not have any definitive explanation for that other than to consider some type of possible autonomic dysfunction with the normal shunting of blood flow to the GI tract after his meal but without any ability to have a normal compensatory autonomic reflex to provide adequate blood flow elsewhere in his body. I did advise him to discuss this with you and to consider further evaluation by either a neurologist or business machines teacher to do some autonomic testing such as a tilt table test. Some patients may have an idiopathic neuropathy that contributes to this as well and might be diagnosed by a skin biopsy. Again, I did advise him to review all of this with you to consider these options. Pardeep was comfortable with this plan. Thank you again for allowing me to participate in Pardeep's care. I shall continue to keep you advised of his progress. 07/23/2024 Dizziness (ICD-10 - R42) Plan Of Treatment Pending Test Test Name Order Date UPPER GI ENDOSCOPY 06/27/2024 Pathology 07/23/2024 Next Appt Details Provider Name:Keith Concepcion , 01/08/2025 09:40:00 AM, [address], [address], [place], [address], Insurance Providers Payer Name Payer Address Payer Phone Subscriber Number Group Number Insured Name Patient Relationship to Insured Coverage Start Date [facility]age End Date [facility] [id number] [place] [id number] PARDEEP MONTENEGRO Self - patient is the insured
--- OUTSIDE RECORDS SUMMARY | 2024-08-16 08:59 | XMS_ITS ---
Author Organization [facility] Address [address] [place] [address] Care Team Providers Care Accounting Systems Manager Name Role Phone Jovany Barrera Primary Care Provider UnavailKeith Washburn Unavailable [phone] Allergies Allergen (clinical drug ingredient) Drug/Non Drug [...] Problem Status W/U Status Risk Notes Problem GERD (gastroesopha geal reflux disease) (K21.9) Active confirmed Vital Signs Temperature 97.5 degrees Fahrenheit 06/28/19 25 Blood pressure systolic 001 mm Hg 06/28/19 25 Blood pressure diastolic 01 mm Hg 025 Height 71 in 06/27/2024 Weight 140.4 lbs 06/27/2024 BMI 19.58 kg/m2 06/27/2024 Procedures Procedure Date Ordered Date Performed Result Body Sit e UPPER GI ENDOSCOPY 06/27/2024 N/A Encounters Encounter Location Date Provider Diagnosis [facility] [address] [place] [address] 06/27/2024 Keith Concepcion GERD (gastroesophageal reflux disease) K21.9 and Dizziness R42 Assessments Encounter Date Diagnosis (ICD Code) Assessment Notes Treatment Notes Treatment Clinical Notes Section Notes 06/27/2024 GERD (gastroesopha geal reflux disease) (ICD-10 - K21.9) Overall, Pardeep [...] to his other symptoms of the postprandial lightheadedness, weakness, and brain fog , I advised [...] further evaluation by either a neurologist or custom van converter to do some autonomic testing such as [...] with a Tilt Table Test with a Manager Adult or Neurologist for things like POTS disease [...] to his other symptoms of the postprandial lightheadedness, weakness, and brain fog , I advised [...] further evaluation by either a neurologist or custom van converter to do some autonomic testing such as [...] to keep you advised of his progress. Plan Of Treatment Treatment Notes Assessment Notes Dizziness Ask Dr. Barrera abo ut some Autonomic Testing with a Tilt Table Test with a Manager Adult or Neurologist for things like POTS disease that might be causing your post-meal symptoms of dizziness, brain fog, etc. Pending Test Test Name Order Date UPPER GI ENDOSCOPY 06/27/2024 Next Appt Details Follow Up: prn, Reason: Provider Name:Keith Concepcion , 01/08/2025 09:40:00 AM, [address], [address], [place], [address], Progress Notes * OMEGA WASHINGTONOB:1995 (28 yo M)Acc No.[id number]:06/27/2024 Progress Notes Patient:?PARDEEP WASHINGTON Provider:?Keith Concepcion MD :1995???Age:28 Y???Sex:Male Joseph e:06/27/2024 Address:[address] [place] [address] [address], [id number] Pcp:Jovany Barrera Subjective: * Chief Complaints: * ???Patient presents today fo r gerd * HPI: ???incontinence:? I saw Pardeep in consultation today in regard to further evaluation of his chronic gastroesophageal reflux, as well as his chronic postprandial symptoms including lightheadedness and weakness. As you know, Pardeep is a healthy 28-year-old male who generally feels quite well. However, he has been troubled by at least 5 or 6 years of chronic reflux that he describes as heartburn and occasional regurgitation which has required medication for acid suppression. He has been on previous PPI therapy but is presently using famotidine 20 mg twice a day with what he thinks is better relief of the reflux symptoms. He is presently not having any significant heartburn on the famotidine, dysphagia, anorexia, early satiety, nausea, nor vomiting. He denies ever having had an upper endoscopy or upper GI series. He denies any smoking, significant alcohol use, significant caffeine use, nor any significant use of carbonated beverages. He denies any particular abdominal pains, jaundice, nor unintentional weight loss. He reports that his bowel movements been regular and without any signs of bleeding. He describes having had negative laboratories for celiac disease in the past. He denies any known family history of colorectal cancer, inflammatory bowel disease, nor celiac disease. His other main issue is that of significant postprandial symptoms. These have been occurring for well over 1 year. He describes that he eats his meal comfortably but within about 30 to 60 minutes after each meal he will develop significant weakness, a feeling of lightheadedness, and brain fog . He denies any syncope in relation to the symptoms nor any abdominal pain. The symptoms do not interfere with his completing the meal, and are not associated with any other symptoms such as nausea, vomiting, nor diarrhea. He reports that the postprandial symptoms are not related to any specific food. He reports that he is able to exercise comfortably and denies having the symptoms with any other activities. * ROS:?General/Constitutional:?Change in appetite?denies.?Chills?denies.?Fatigue?denies.?Ophthalmologic:?Comments?all negative.?ENT:?Comments?all negative.?Respiratory:?hemoptysis?denies.?Cough?denies.?Cardiovascular:?Chest pain?denies.?Orthopnea?denies.?Gastrointestinal:?Comments?See HPI for details.?Genitourinary:?Hematuria?denies.?Dysuria?denies.?Musculoskeletal:?Painful joints?denies.?Weakness?denies.?Skin:?Itching?denies.?Rash?denies.?Neurologic:?Headache?denies.?Seizures?denies.?Psychiatric:?Comments?all negative.? * Medical History:? * Surgical History:?No Surgica l History documented. * Hospitalization/Major Diagno stic Procedure:?No Hospitalization History. * Family History:?Father: dece ased.?Mother: alive.? No family history of colon cancer, IBD, or celiac disease. * Social History:?Tobacco Use:?Tobacco Control (Standard)?Tobacco use:?Nonsmoker.?Miscellaneous:?Marital status: single. 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 ???Drug/Alcohol:?AUDIT-C (Standard)?Did you have a drink containing [...] in the past year??Never (0 point),?Points?2,?Interpretation?Negative.? * Medications:?TakingFamotidin e 20 MG Tablet TAKE 1 TABLET BY MOUTH TWICE DAILY Oral Tadalafil 10 MG Tablet 1 tablet as needed Orally Once a day Taking Famotidine 20 MG Tablet TAKE 1 TABLET BY MOUTH TWICE DAILY Oral Taking Tadalafil 10 MG Tablet 1 tablet as needed Orally Once a day * Allergies:?Dust Mitesyes[All ergies Verified] Objective: * Vitals:?Wt:140.4lbs, Ht: 71 in, BMI:19.58Index, BP:001/01mm Hg, Temp:97.5, Ht- cm: 180.34, Wt-k.69. * Examination: ???General Examination: ?GENERAL APPEARANCE:?pleasant, well nourished, well developed, in no acute distress.?EYES:?sclera non-icteric.?ORAL CAVITY:?mucosa moist.?NECK/THYROID:?no cervical lymphadenopathy, neck supple.?SKIN:?nonjaundiced, no spider angiomata.?HEART:?S1, S2 normal.?LUNGS:?clear to auscultation bilaterally.?ABDOMEN:?normal bowel sounds, no guarding or rigidity, no guarding or rigidity, no masses palpable, soft, nontender, nondistended.?EXTREMITIES:?no edema.?NEUROLOGIC:?alert and oriented.? Assessment: * Assessment: 1.?GERD (gastroesophageal re flux disease) - K21.9 (Primary)???2.?Dizziness - R42??? Overall, Pardeep appears quite well. In regard [...] to his other symptoms of the postprandial lightheadedness, weakness, and brain fog , I advised [...] further evaluation by either a neurologist or custom van converter to do some autonomic testing such as [...] to keep you advised of his progress. Plan: * Treatment: 2.?Dizziness? Notes: Ask Dr. Barrera about some Autonomic Testing with a Tilt Table Test with a Manager Adult or Neurologist for things like POTS disease that might be causing your post-meal symptoms of dizziness,brain fog, etc.?? * Immunizations:? Influenza (Not administered - Refused: Patient decision) * Procedure Codes:?70266 UPPR GI ENDOSCOPY, [id number] TOBACCO NON-XENPC9375 BP SCR NOT PRFRM REC REASON NOS * Follow Up:?prn * * Sign off status: Completed true * Provider:?Keith Concepcion MD Date:? 025 Generated for Sandy morrison/Basilio/eTransmitting on:?08/16/2024 08:59 AM EDT History and Physical Notes * HPI (History of Present Illness) Category Sub-Category Detail Notes Category Not es incontinence I saw Pardeep in consultation today in regard to further evaluation of his chronic gastroesophageal reflux, as well as his chronic postprandial symptoms including lightheadedness and weakness. As you know, Pardeep is a healthy 28-year-old male who generally feels quite well. However, he has been troubled by at least 5 or 6 years of chronic reflux that he describes as heartburn and occasional regurgitation which has required medication for acid suppression. He has been on previous PPI therapy but is presently using famotidine 20 mg twice a day with what he thinks is better relief of the reflux symptoms. He is presently not having any significant heartburn on the famotidine, dysphagia, anorexia, early satiety, nausea, nor vomiting. He denies ever having had an upper endoscopy or upper GI series. He denies any smoking, significant alcohol use, significant caffeine use, nor any significant use of carbonated beverages. He denies any particular abdominal pains, jaundice, nor unintentional weight loss. He reports that his bowel movements been regular and without any signs of bleeding. He describes having had negative laboratories for celiac disease in the past. He denies any known family history of colorectal cancer, inflammatory bowel disease, nor celiac disease. His other main issue is that of significant postprandial symptoms. These have been occurring for well over 1 year. He describes that he eats his meal comfortably but within about 30 to 60 minutes after each meal he will develop significant weakness, a feeling of lightheadedness, and brain fog . He denies any syncope in relation to the symptoms nor any abdominal pain. The symptoms do not interfere with his completing the meal, and are not associated with any other symptoms such as nausea, vomiting, nor diarrhea. He reports that the postprandial symptoms are not related to any specific food. He reports that he is able to exercise comfortably and denies having the symptoms with any other activities. Examination Category Sub-Category Detail Notes Category Not es General Examination GENERAL APPEARANCE: pleasant , well nourished, well developed, in no acute distress HEAD: EYES: sclera non-icteric EARS: NOSE: THROAT: NECK/THYROID: no cervical lymphade nopathy, neck supple HEART: S1, S2 normal CHEST: LUNGS: clear to auscultatio n bilaterally ABDOMEN: normal bowel sounds, no guarding or rigidity, no guarding or rigidity, no masses palpable, soft, nontender, nondistended NEUROLOGIC: alert and oriented SKIN: nonjaundiced, no spi rishi angiomata EXTREMITIES: no edema PERIPHERAL PULSES: BACK: BREASTS: MUSCULOSKELETAL: MALE GENITOURINARY: LYMPH NODES: RECTAL EXAM: FEMALE GENITOURINARY: ORAL CAVITY: mucosa moist
--- OUTSIDE RECORDS SUMMARY | 2024-08-16 08:59 | XMS_ITS ---
Author Organization [facility] Address [address] [place] [address] Care Team Providers Care Director Search Name Role Phone Jovany Barrera Primary Care Provider Unavailab Keith Mendoza Unavailable [phone] REASON FOR VISIT gerd Encounters Encounter Location Date Provider Diagnosis [facility] [place] [address] [place] [phone] 07/23/2024 Keith Concepcion Gastro-esophageal reflux disease without [...] Name:Keith Concepcion , 01/08/2025 09:40:00 AM, [address], [address], [place], [address], Progress Notes * OMEGA WASHINGTONOB:1995 (29 yo M)Acc No.[id number]:07/23/2024 EGD/MAC Patient:?SHAVONNE WASHINGTON Provider:?Keith Concepcion MD :1995???Age:28 Y???Sex:Male Joseph e:07/23/2024 Address:[address] [place] [address] [address], [place], [place] Pcp:Jovany Barrera Subjective: * Chief Complaints: * ???1. Gerd. * Medical History:? Objective: * Vitals:? Assessment: * Assessment: 1.?Gastro-esophageal reflux disease without esophagitis - K21.9 (Primary)???2.?Weakness - R53.1???3.?Dizziness - R42??? Plan: * Treatment: * Procedure Codes:?61613 UPPER GI ENDOSCOPY, BIOPSY * * The named appointment provid er may or may not be the originator of this progress note, and it is not deemed complete until electronically signed by the appointment provider. Sign off status: Pending * Provider:?Keith Concepcion MD Date:? 025 Generated for Sandy morrison/Basilio/Heshamitting on:?08/16/2024 08:58 AM EDT
--- OUTSIDE RECORDS SUMMARY | 2024-08-16 08:59 | XMS_ITS | Encounter Summary ---
Author Organization [facility] Address [address] [place] [address] Care Team Providers Care Health Promoter Name Role Phone Bryant Veras MD Primary Care Provider [phone] Encounter Details Date Type Department Care Team Description 06/24/2023 Orders Only Adult Medicine - [place] [address], [place] [id number] Bryant Veras MD [address], [place] [id number] Epigastric pain Social History Tobacco Use Types Packs/Day Years Used Date Smoking Tobacco: Never Smokeless Tobacco: Never Alcohol Use Standard Drinks/Week Comments Yes 0 (1 standard drink = 0.6 oz pur e alcohol) rare Sex Assigned at Date Recorded Not on file documented as of this encounter Plan of Treatment Not on file documented as of this encounter Visit Diagnoses Diagnosis Epigastric pain Abdominal pain, epigastric documented in this encounter Care Teams Health Promoter Relationship Specialty Start Date End Date Bryant Veras MD [address], [place] [id number] PCP - General Internal Medicine 01/09/21 documented as of this encounter
--- OUTSIDE RECORDS SUMMARY | 2024-08-16 08:59 | XMS_ITS | Encounter Summary ---
Author Organization [facility] Address [address] [place] [address] Care Team Providers Care Pipeline Engineer Name Role Phone Bryant Veras MD Primary Care Provider [phone] Encounter Details Date Type Department Care Team Description 06/24/2023 Telephone Adult Medicine - [place] [address] [employer], [place] [id number] Bryant Veras MD [address], [place] [id number] Social History Tobacco Use Types Packs/Day Years Used Date Smoking Tobacco: Never Smokeless Tobacco: Never Alcohol Use Standard Drinks/Week Comments Yes 0 (1 standard drink = 0.6 oz pur e alcohol) rare Sex Assigned at Date Recorded Not on file documented as of this encounter Miscellaneous Notes * Telephone Encounter - Paige Smallwood M.A. - 06/24/2023 2:41 PM EDT Spoke to patient and patient stated he would like to have ultrasound done of sono abdomen. I transferred him to [facility] in Radiology and she stated he still had no insurance, which that is why he has not had it completed. documented in this encounter Plan of Treatment Not on file documented as of this encounter Visit Diagnoses Not on filedocumented in this encounter Care Teams Pipeline Engineer Relationship Specialty Start Date End Date Bryant Veras MD [address] [employer], [place] [phone] PCP - General Internal Medicine 01/09/21 documented as of this encounter
[2024-08-16 11:05] LABS: MANUAL DIFF FLAG NO
[2024-08-16 11:16] LABS: Basophils Percent Auto 0.9 % (0-2); Eosinophils Absolute Auto 0.1 X10*3/uL (0.0-0.4); Eosinophils Percent Auto 1.6 % (0-4); Hematocrit 47.7 % (42.0-52.0); Hemoglobin 16.2 g/dl (14.0-18.0); Imm Gran Abs Auto 0.01 X10*3/uL (0.00-0.03); Imm Gran Pct Auto 0.2 % (0.0-0.4); Lymphocytes Absolute Auto 1.6 X10*3/uL (1.2-4.9); Lymphocytes Percent Auto 35.5 % (20-40); Mean Corpuscular Hemoglobin 30.3 pg (27.0-33.0); Mean Corpuscular Volume 89.3 fL (80.0-98.0); Mean Platelet Volume 11.3 fL (9.4-12.4); Monocytes Absolute Auto 0.4 X10*3/uL (0.1-1.2); Monocytes Percent Auto 8.3 % (2-11); Neutrophils Absolute Auto 2.4 x10*3/uL (2.0-8.3); Neutrophils Percent Auto 53.5 % (45-73); Platelet Count 194 X10*3/uL (160-400); Red Blood Count 5.34 X10*6/uL (4.60-5.80); Red Cell Distribution Width 11.9 % (11.0-16.0); White Blood Count 4.5 X10*3/uL (4.8-10.8)
[2024-08-16 11:41] LABS: Anion Gap 13 (12-20); Blood Urea Nitrogen 16 mg/dL (9-16); Calcium 9.7 mg/dL (8.4-10.2); Carbon Dioxide 31 mmol/L (22-29); Chloride 104 mmol/L (96-108); Estimated Glomerular Filt Rate > 60; Glucose Random 89 mg/dL (60-115); Potassium 4.3 mmol/L (3.3-5.1); Sodium 144 mmol/L (135-145)
[2024-08-24 16:53] LABS: Testosterone, Free 104.2 pg/mL (35.0-155.0); Testosterone, Total 438 ng/dL (250-1100)
== END 2024-08-16 08:48 | disposition home or self-care (01) ==
LOC: HO.WFDLDS 08:47
PROVIDERS: Visit Provider Family Medicine
DX: Z00.00 Encounter for general adult medical examination without abnormal findings (principal); R68.82 Decreased libido; R42 Dizziness and giddiness
CPT/HCPCS: 36415; 80048; 84402; 84403; 85025

== ENCOUNTER 2024-08-23 11:36 | Outpatient (AMB) | payer OTHER, SELFPAY ==
--- NOTE | 2024-08-23 11:56 | A.OFFPC_ITS ---
Vital Signs 08/23/24 11:59 Height 5 ft 11 in Weight 146 lb 6 oz BMI 20.4 BP 126/66 Blood Pressure Location Rt brachial Position Sitting Respiration 18 Pulse 64 Pulse Source Pulse Oximeter Temp 97.9 F Temp Source Oral Pulse Oximetry (%) 98 Oxygen Delivery Method Room Air Intake Visit Reasons: 3-4 weeks follow up blood work Intake Note: patient is schecule for lab work follow-up and patient has no cerncerns Allergies No Known Allergies Allergy (Verified 08/23/24 11:58) Medication List - Last Reconciled 08/23/24 by Jovany Barrera MD famotidine 20 mg PO BID 90 days Tobacco use date assessed: 08/23/24 Dental Screening Dental Screen Date: 08/23/24 Did you have a dental visit in the last 12 months?: Yes Did you have a dental problem in the last 6 months where you did not have access to dental care?: No Was dental information given to patient?: No HPI 3-4 weeks follow up blood work HPI Details 29 y/o male presents to f/u labs for low libido, postprandial dizziness/brain fog. He had seen Dr. Concepcion who was concerned patient may have POTS. Labs drawn 08/16/24. Testosterone levels still pending. HPI Comments History of Present Illness Details Documentation assistance for Jovany Barrera MD, was provided by Tre Holland,? Loan Documentation Specialist on 08/23/2024 at 12:21 PM EST. I, Dr. Barrera, have read, observed, and verified documentation. ?? 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 Current occupational exposures/hazards: No Cognitive needs: No Hearing needs: No Vision needs: No Questionnaire Thrive Questionnaire Date Thrive assessed: 08/23/24 I am a: Patient What is your living situation today?: I have a steady place to live Within the past 12 months, did the food you bought not last and you didn't have the money to get more?: Never true Within the past 12 months, did you worry whether your food would run out before you got money to buy more?: Never true Do you have trouble paying for medicines?: No Do you have trouble getting transportation to medical appointments?: No Do you have trouble paying your heating and electricity bill?: No Do you have trouble taking care of your child, family member or friend?: No Do you have trouble with day-to-day activities such as bathing, preparing meals, shopping, managing finances, etc.?: No Are you currently unemployed and looking for a job?: No Are you interested in more education?: No Please select the resources that you would like help with: None Currently or been in a relationship where the following occur: No concerns reported THRIVE Score: 0 REMINGTON-7 AMB Questionnaire REMINGTON-7 Date REMINGTON - 7 assessed: 06/29/24 Source: Developed by Drs. Keith Yee, Geena Cuevas, Noel Rolon and colleagues, with an educational sangeeta from [employer]. Review of Systems Const Denies chills, Denies fatigue, Denies fever(s), Denies headache(s) and Denies weakness ENT Denies dizziness and Denies headache(s) Card Denies dyspnea Resp Denies cough, Denies dyspnea, Denies wheezing and Denies other (shortness of breath) Musc Denies numbness and Denies tingling Neuro Denies dizziness, Denies headache(s), Denies numbness, Denies tingling and Denies weakness Psych Denies anxiety and Denies depression Endo Denies fatigue Aller/Immun Denies wheezing Physical exam (Primary Care) Vital Signs: Last Vital Signs Temp 97.9 F 08/23/24 11:59 Pulse 64 08/23/24 11:59 Resp 18 08/23/24 11:59 BP 126/66 08/23/24 11:59 Pulse Ox 98 08/23/24 11:59 Oxygen Delivery Method Room Air 08/23/24 11:59 BMI result Body Mass Index 20.4 Tobacco/Smoking Status: Tobacco use Status Tobacco use date assessed 08/23/24 08/23/24 12:03 Patient Tobacco Use Status Never used Tobacco 08/23/24 11:57 e-Cigarette/Vaping Use Currently Using 08/23/24 11:57 Thrive Assessment: Date of Thrive Assessment Date Thrive assessed 08/23/24 08/23/24 12:03 Currently or been in a relationship where the following occur: No concerns reported Const General: well developed; No acute distress Nutritional Appearance: well nourished Orientation/consciousness: patient oriented x3 HENMT Head: Yes normocephalic and Yes atraumatic Eyes General: appearance normal, both eyes and all related structures Pupils: Equal, round and reactive pupils present EOM: EOMs intact bilaterally Resp Effort & Inspection: normal respiratory effort Neuro General: patient oriented x3 and gait normal Cranial nerves: Yes Equal, round and reactive pupils present Psych Affect: normal affect Coding Level of Care Code Est Pt Level 3 (13914) Diagnoses Decreased libido R68.82 Dizziness R42 Assessment & Plan Assessment & Plan (1) Decreased libido: Code(s): R68.82 - Decreased libido Category: Medical Plan: Testosterone?levels?are?pending Will?call?patient?if?action?is?required (2) Dizziness: Code(s): R42 - Dizziness and giddiness Category: Medical Plan: Lab?work?is?unrevealing?regarding?dizziness?or?postprandial?dizziness His?trestleman?was?concern?regarding?POTS?syndrome I?have?referred?him?to?Cardiology Orders: Referrals Cardiology Referral R42 - Dizziness and giddiness
--- OUTSIDE RECORDS SUMMARY | 2024-08-23 11:56 | XMS_ITS | Encounter Summary ---
Author Organization [facility] Address [address] [place] [address] Phone Care Team Providers Care Saw Man Name Role Phone Keith Cowart MD Primary Care Provider [phone] Encounter Details Date Type Department Care Team (Late st Contact Info) Description 08/14/2017 Conversion Encounter [facility] [address] [place] [address] Social History Tobacco Use Types Packs/Day Years [...] on filedocumented in this encounter Care Teams Saw Man Relationship Specialty Start Date End Date Keith Cowart MD [address] [place] [address] PCP - General Pediatrics 10/11/17 12/27/23 documented as of this encounter
[2024-08-23 11:59] VITALS: BP 126/66; PULSE 64; RESP 18; TEMP 36.6; O2SAT 98; BMI 20.4
== END 2024-08-23 12:32 | disposition home or self-care (01) ==
LOC: HO.HMCFM 11:36
PROVIDERS: PCP Family Medicine; Visit Provider Family Medicine
DX: R68.82 Decreased libido (principal); R42 Dizziness and giddiness

== ENCOUNTER → 2024-08-23 11:36 | Outpatient (BNVA) | payer OTHER, SELFPAY | PROVIDERS: PCP Family Medicine; Visit Provider Family Medicine ==

== ENCOUNTER 2024-11-30 09:27 | Outpatient (AMB) | payer OTHER, SELFPAY ==
--- OUTSIDE RECORDS SUMMARY | 2024-07-23 09:30 | XMS_ITS ---
Author Organization [facility] Address [address] [place] [address] Care Team Providers Care Route Service Manager Name Role Phone Jovany Barrera Primary Care Provider Unavailab Keith Mendoza Unavailable [phone] REASON FOR VISIT gerd Encounters Encounter Location Date Provider Diagnosis [facility] [address] [place] [phone] 07/23/2024 Keith Concepcion Gastro-esophageal reflux disease without esophagitis K21.9 ; Weakness R53.1 and Dizziness R42 Assessments Encounter Date Diagnosis (ICD Code) Assessment Notes Treatment Notes Treatment Clinical Notes Section Notes 07/23/2024 Gastro-esophagea l reflux disease without esophagitis (ICD-10 - K21.9) 07/23/2024 Weakness (ICD-10 - R53.1) 07/23/2024 Dizziness (ICD-10 - R42) Plan Of Treatment Next Appt Details Provider Name:Keith Concepcion , 01/08/2025 09:40:00 AM, [address], [address], [place], [address], Progress Notes * OMEGA WASHINGTONOB:1995 (29 yo M)Acc No.[id number]:07/23/2024 EGD/MAC Patient: SHAVONNE PAINTER Provider: Demi Concepcion MD :1995 A ge:28 Y S ex:Male Date:07/23/2024 Address:[address] [place] [address] [address], [place], [place] Pcp:Jovany Barrera Subjective: * Chief Complaints: * 1 . Gerd. * Medical History: Objective: * Vitals: Assessment: * Assessment: 1. G heidi-esophageal reflux disease without esophagitis - K21.9 (Primary) 2 .?Weakness - R53.1 3 . D izziness - R42 Plan: * Treatment: * Procedure Codes: 4 3239 UPPER GI ENDOSCOPY, BIOPSY * * The named appointment provid er may or may not be the originator of this progress note, and it is not deemed complete until electronically signed by the appointment provider. Sign off status: Pending * Provider: Demi Concepcion MD Date: 0 07/23/2024 Generated for Sandy morrison/Basilio/Heshamitting on: 0 11/30/2024 10:09 AM EDT
--- NOTE | 2024-11-30 09:32 | MHC.PC.OV ---
Vital Signs 11/30/24 09:35 Height 5 ft 11 in Weight 141 lb 4 oz BMI 19.7 BP 112/60 Blood Pressure Location Rt brachial Position Sitting Respiration 16 Pulse 59 Pulse Source Pulse Oximeter Temp 97.3 F Temp Source Temporal Artery Scan Pulse Oximetry (%) 98 Oxygen Delivery Method Room Air Intake Visit Reasons: f/u dizziness/Brain fog & low libido Intake Note: Pardeep presents in the office today for dizziness, brain fog and low libido. Allergies No Known Allergies Allergy (Verified 11/30/24 09:33) Tobacco use date assessed: 11/30/24 Dental Screening Dental Screen Date: 11/30/24 Did you have a dental visit in the last 12 months?: Yes Did you have a dental problem in the last 6 months where you did not have access to dental care?: No Was dental information given to patient?: Patient has dentist HPI f/u dizziness/Brain fog & low libido HPI Details 29 y/o male presents to f/u dizziness/ fog, postprandial dizziness and low libido. Pt describes a feeling of fogginess/sickness after eating. Has an appt. with Cardiology scheduled. Pt did note allergies themselves improved on cetrizine. Ongoing decreased libido. HPI Comments History of Present Illness Details Documentation assistance for Jovany Barrera MD, was provided by Tre Holland,? Microwave Remote Sensing Scientist on 11/30/2024 at 9:54 AM EST. I, Dr. Barrera, have read, observed, and verified documentation. ?? 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 Current occupational exposures/hazards: No Cognitive needs: No Hearing needs: No Vision needs: No Questionnaire Thrive Questionnaire Date Thrive assessed: 06/22/24 I am a: Patient What is your living situation today?: I have a steady place to live Within the past 12 months, did the food you bought not last and you didn't have the money to get more?: Never true Within the past 12 months, did you worry whether your food would run out before you got money to buy more?: Never true Do you have trouble paying for medicines?: No Do you have trouble getting transportation to medical appointments?: No Do you have trouble paying your heating and electricity bill?: No Do you have trouble taking care of your child, family member or friend?: No Do you have trouble with day-to-day activities such as bathing, preparing meals, shopping, managing finances, etc.?: No Are you currently unemployed and looking for a job?: No Are you interested in more education?: No Please select the resources that you would like help with: None Currently or been in a relationship where the following occur: No concerns reported THRIVE Score: 0 REMINGTON-7 AMB Questionnaire REMINGTON-7 Date REMINGTON - 7 assessed: 06/29/24 Source: Developed by Drs. Keith Yee, Geena Cuevas, Noel Rolon and colleagues, with an educational sangeeta from [employer]. Review of Systems Const Denies chills, Denies fatigue, Denies fever(s), Denies headache(s) and Denies weakness ENT Denies dizziness and Denies headache(s) Card Denies dyspnea Resp Denies cough, Denies dyspnea, Denies wheezing and Denies other (shortness of breath) Musc Denies numbness and Denies tingling Neuro Denies dizziness, Denies headache(s), Denies numbness, Denies tingling and Denies weakness Psych Denies anxiety and Denies depression Endo Denies fatigue Aller/Immun Denies wheezing Physical exam (Primary Care) Vital Signs: Last Vital Signs Temp 97.3 F 11/30/24 09:35 Pulse 59 11/30/24 09:35 Resp 16 11/30/24 09:35 BP 112/60 11/30/24 09:35 Pulse Ox 98 11/30/24 09:35 Oxygen Delivery Method Room Air 11/30/24 09:35 BMI result Body Mass Index 19.7 Tobacco/Smoking Status: Tobacco use Status Tobacco use date assessed 11/30/24 11/30/24 09:37 Patient Tobacco Use Status Never used Tobacco 11/30/24 09:34 e-Cigarette/Vaping Use Currently Using 11/30/24 09:34 Thrive Assessment: Date of Thrive Assessment Date Thrive assessed 06/22/24 11/30/24 09:33 Currently or been in a relationship where the following occur: No concerns reported Const General: well developed; No acute distress Nutritional Appearance: well nourished Orientation/consciousness: patient oriented x3 HENMT Head: Yes normocephalic and Yes atraumatic Eyes General: appearance normal, both eyes and all related structures Pupils: Equal, round and reactive pupils present EOM: EOMs intact bilaterally Resp Effort & Inspection: normal respiratory effort Auscultation: clear to auscultation bilaterally Cardio Rate: regular rate Rhythm: regular rhythm Heart sounds: S1 normal heart sound present, S2 normal heart sound present, no gallops, no murmurs and no rubs Neuro General: patient oriented x3 and gait normal Cranial nerves: Yes Equal, round and reactive pupils present Psych Affect: normal affect Coding Level of Care Code Est Pt Level 4 (38528) Diagnoses Dizziness R42 Decreased libido R68.82 Allergies T78.40XA Assessment & Plan Assessment & Plan (1) Dizziness: Code(s): R42 - Dizziness and giddiness Category: Medical Plan: Patient is still notes dizziness which is associated with meals Dizziness occurs postprandially He has an upcoming appointment with Gastroenterology Patient's body masses at the lower end of normal. Advised he hydrate well and get regular meals. Can drink 1 electrolyte drink per day as well (2) Decreased libido: Code(s): R68.82 - Decreased libido Category: Medical Plan: Still has some ongoing decreased libido He says he is not sure if this is psychological or due to the fact that he sometimes does not feel well from the above dizziness He does have a therapist and I advised him to discuss this with his therapist As above, he has an appointment with Cardiology to rule out a cardiovascular underlying cause. Testosterone levels and his other labs were okay (3) Allergies: Code(s): T78.40XA - Allergy, unspecified, initial encounter Category: Medical Plan: Patient notes that cetirizine and Flonase have helped with his allergy issues He can continue this Orders: Orders Comprehensive [place]. Panel Fast 3 Months Z00.00 - Encounter for general adult medical examination without abnormal findings Lipid Panel 3 Months Z00.00 - Encounter for general adult medical examination without abnormal findings TSH reflex Free T4 3 Months Z00.00 - Encounter for general adult medical examination without abnormal findings UA CC w/rflx Micro + Cult 3 Months Z00.00 - Encounter for general adult medical examination without abnormal findings Complete Blood Count Auto Diff 3 Months Z00.00 - Encounter for general adult medical examination without abnormal findings Microalbumin, Random (w Creat) 3 Months I10 - Essential (primary) hypertension
[2024-11-30 09:35] VITALS: BP 112/60; PULSE 59; RESP 16; TEMP 36.3; O2SAT 98; BMI 19.7
--- OUTSIDE RECORDS SUMMARY | 2024-11-30 10:09 | XMS_ITS | Clinical Summary ---
Author Organization [facility] Address [address] [place] [address] Phone Care Team Providers Care Soybean Specialties Cook Name Role Phone Unavailable Primary Care Provider [...] AM EST Pulse - - Temperature 36.9 C (98.4 F) 06/20/2013 12:00 AM EDT Respiratory Rate - - Oxygen Saturation 100% [...] 05/26/1999, Additional history exists Influenza Vaccines (#1) 2024 01/17/20 15, 02/09/2013, 04/27/2012, Additional history exists COVID-19 Vaccine ( season) 2024 Hepatitis B Vaccines Completed 04/24/1998, 1997, 1997 [...]
--- OUTSIDE RECORDS SUMMARY | 2024-11-30 10:09 | XMS_ITS | Encounter Summary ---
Author Organization [facility] Address [address] [place] [address] Care Team Providers Care Traffic Manager Name Role Phone Torsten Wong MD Primary Care Provider Bryant Rowan MD Primary Care Provider [phone] Encounter Details Date Type Department Care Team Description 01/25/2019 Release of Information Medical Records [address] [place] [address] Abstract, Provider Social History Tobacco Use Types [...] OBTAIN RECORDS MAILED TO [facility]. documented in this encounter Plan of Treatment Not on file documented as of this encounter Visit Diagnoses Not on filedocumented in this encounter Care Teams Traffic Manager Relationship Specialty Start Date End Date Torsten Wong MD PCP - General Internal Medicine 11/30/18 01/08/21 Bryant Veras MD [address] [place] [address] PCP - General Internal Medicine 01/09/21 documented as of this encounter
--- OUTSIDE RECORDS SUMMARY | 2024-11-30 10:09 | XMS_ITS | Patient Health Record ---
Author Organization [facility] Address [address] [place] [phone] Care Team Providers Care Electronics Design Engineer Name Role Phone Jovany Barrera Primary Care Provider Unavailab Keith Mendoza Unavailable [phone] Allergies Allergen (clinical drug ingredient) Drug/Non Drug Allergy documented on EMR Reaction Allergy Type Onset Date Status Dust Mites Unknown Allergy Active Results Component Value Reference Range Notes Pathology (Not yet reviewed by provider) Interpretation: Performing Lab:[facility], [address] [place] [id number] Notes/Report: Reason For Referral Referring Provider First Name Jovany Referring Provider Last Name Holly Referred Organization [facility] Referred Provider Keith Concepcion Referred Address [address] [place] [address],[address],[place], [place],[address], Referred Provider Specialty Gastroentero logy Referral Priority Routine Medications Medication SIG (Take, Route, Fr equency, Duration) Notes Start Date End Date Status Famotidine 20 MG TAKE 1 TABLET BY [facility] TWICE DAILY Oral for 30 Days Active [...] Status Risk Notes Problem Gastroesophageal reflux disease ([id number]) GERD (gastroeso phageal reflux disease) (K21.9) Active confirmed Vital Signs Temperature 97.5 degrees Fahrenheit 06/27/2024 Blood pressure diastolic 01 mm Hg 06/27/2024 Height 71 in 06/27/2024 Blood pressure systolic 001 mm Hg 06/27/2024 Weight 140.4 lbs 06/27/2024 BMI 19.58 kg/m2 06/27/2024 Procedures Procedure Date Ordered Date Performed Result Body Sit e UPPER GI ENDOSCOPY 06/27/2024 N/A Encounters Encounter Location Date Provider Diagnosis [facility] Outpatient [address] [place] [id number] 07/23/2024 Keith Concepcion Gastro-esophageal reflux disease without esophagitis K21.9 ; Weakness R53.1 and Dizziness R42 [facility] [address] [place] [phone] 06/27/2024 Keith Concepcion GERD (gastroesophageal reflux disease) K21.9 and Dizziness R42 [facility] [address] [place] [phone] 07/30/2024 Keith Concepcion Assessments Encounter Date Diagnosis [...] further evaluation by either a neurologist or pmp to do some autonomic testing such as [...] with a Tilt Table Test with a Pedal Assembler or Neurologist for things like POTS disease [...] further evaluation by either a neurologist or pmp to do some autonomic testing such as [...] Pathology 07/23/2024 Next Appt Details Provider Name:Keith Scherer Concepcion , 01/08/2025 09:40:00 AM, [address] [place] [address], [address], [place], [address], Insurance Providers Payer Name Payer Address Payer Phone Subscriber Number Group Number Insured Name Patient Relationship to Insured Coverage Start Date Coverage End Date [employer] [id number] [place] [id number] PARDEEP [place] Self - patient is the insured
--- OUTSIDE RECORDS SUMMARY | 2024-11-30 10:09 | XMS_ITS | Encounter Summary ---
Author Organization [facility] Address [address] [place] [address] Care Team Providers Care Ecologist Name Role Phone Bryant Veras MD Primary Care Provider [phone] Encounter Details Date Type Department Care Team Description 06/24/2023 Orders Only Adult Medicine - [place] [address] [place], [place] [phone] Bryant Veras MD [address] [place], [place] [phone] Epigastric pain Social History Tobacco Use Types [...] epigastric documented in this encounter Care Teams Ecologist Relationship Specialty Start Date End Date Bryant Veras MD [address] [place], [place] [phone] PCP - General Internal Medicine 01/09/21 documented as of this encounter
--- OUTSIDE RECORDS SUMMARY | 2024-11-30 10:09 | XMS_ITS | Encounter Summary ---
Author Organization [facility] Address [address] [place] [address] Care Team Providers Care Wholesale And Retail Merchant Name Role Phone Bryant Veras MD Primary Care Provider [phone] Encounter Details Date Type Department Care Team Description 06/24/2023 Telephone Adult Medicine - [place] [address] [place], [place] [phone] Bryant Veras MD [address] [place], [place] [phone] Social History Tobacco Use Types Packs/Day Years [...] of sono abdomen. I transferred him to [facility] in Radiology and she stated he still had no insurance, which that is why he has not had it completed. documented in this encounter Plan of Treatment Not on file documented as of this encounter Visit Diagnoses Not on filedocumented in this encounter Care Teams Wholesale And Retail Merchant Relationship Specialty Start Date End Date Bryant Veras MD [address] [place], [place] [phone] PCP - General Internal Medicine 01/09/21 documented as of this encounter
--- OUTSIDE RECORDS SUMMARY | 2024-11-30 10:09 | XMS_ITS | Encounter Summary ---
Author Organization [facility] Address [address] [place] [address] Care Team Providers Care House Builder Name Role Phone Torsten Wong MD Primary Care Provider Bryant Rowan MD Primary Care Provider [phone] Encounter Details Date Type Department Care Team Description 02/09/2019 Telephone Internal Medicine - [address], [address] [place] [address] Maddie Pace, MS,RDN,LDN Social History Tobacco Use Types Packs/Day Years Used Date Smoking Tobacco: Never Smokeless Tobacco: Never Alcohol Use Standard Drinks/Week Comments No 0 (1 standard drink = 0.6 oz pur e alcohol) Sex Assigned at Date Recorded Not on file documented as of this encounter Miscellaneous Notes * Telephone Encounter - Nirali Mendoza - 02/09/2019 4:55 PM EST All attempts to reach patient to schedule Nutrition consult have been exhausted. documented in this encounter Plan of Treatment Not on file documented as of this encounter Visit Diagnoses Not on filedocumented in this encounter Care Teams House Builder Relationship Specialty Start Date End Date Torsten Wong MD PCP - General Internal Medicine 11/30/18 01/08/21 Bryant Veras MD [address] [place] [address] PCP - General Internal Medicine 01/09/21 documented as of this encounter
--- OUTSIDE RECORDS SUMMARY | 2024-11-30 10:09 | XMS_ITS | Encounter Summary ---
Author Organization [facility] Address [address] [place] [address] Care Team Providers Care Hospital Clinic Assistant Name Role Phone Bryant Veras MD Primary Care Provider [phone] Encounter Details Date Type Department Care Team Description 12/31/2022 Pt. Non Urgent Medical Question Adult Medicine - [place] [address] [place] [address] Bryant Veras MD [address] [place], [place] [phone] Social History Tobacco Use Types Packs/Day Years Used Date Smoking Tobacco: Never Smokeless Tobacco: Never Alcohol Use Standard Drinks/Week Comments Yes 0 (1 standard drink = 0.6 oz pur e alcohol) rare Sex Assigned at Date Recorded Not on file COVID-19 Exposure Response Date Recorded In the last 10 days, have yo u been in contact with someone who was confirmed or suspected to have Coronavirus/COVID-19? Unable to assess 12/30/2022 9:16 AM EDT documented as of this encounter Plan of Treatment Not on file documented as of this encounter Visit Diagnoses Not on filedocumented in this encounter Care Teams Hospital Clinic Assistant Relationship Specialty Start Date End Date Bryant Veras MD [address] [place], [place] [phone] PCP - General Internal Medicine 01/09/21 documented as of this encounter
--- OUTSIDE RECORDS SUMMARY | 2024-11-30 10:09 | XMS_ITS | Encounter Summary ---
Author Organization [facility] Address [address] [place] [address] Phone Care Team Providers Care Vending Route Driver Name Role Phone Keith Cowart MD Primary Care Provider [phone] Encounter Details Date Type Department Care Team (Late st Contact Info) Description 08/14/2017 Conversion Encounter [facility] [address] [place] [address] Social History Tobacco Use Types Packs/Day Years [...] on filedocumented in this encounter Care Teams Vending Route Driver Relationship Specialty Start Date End Date Keith Cowart MD [address] [place] [address] PCP - General Pediatrics 10/11/17 12/27/23 documented as of this encounter
== END 2024-11-30 09:58 | disposition home or self-care (01) ==
LOC: HO.HMCFM 09:28
PROVIDERS: PCP Family Medicine; Visit Provider Family Medicine
DX: R42 Dizziness and giddiness (principal); R68.82 Decreased libido; T78.40XA Allergy, unspecified, initial encounter

== ENCOUNTER 2025-01-09 08:49 | Outpatient (AMB) | payer OTHER, SELFPAY ==
--- OUTSIDE RECORDS SUMMARY | 2024-07-23 09:30 | XMS_ITS ---
Author Organization [facility] Address [address] [place] [address] Care Team Providers Care Labor Crew Supervisor Name Role Phone Jovany Barrera Primary Care Provider Unavailab Keith Mendoza [phone] REASON FOR VISIT gerd Encounters Encounter Location Date Provider Diagnosis [facility] Outpatient [address] [place], [place] [id number] 07/23/2024 Keith Concepcion Gastro-esophageal reflux disease without esophagitis K21.9 ; Weakness R53.1 and Dizziness R42 Assessments Encounter Date Diagnosis (ICD Code) Assessment Notes Treatment Notes Treatment Clinical Notes Section Notes 07/23/2024 Gastro-esophagea l reflux disease without esophagitis (ICD-10 - K21.9) 07/23/2024 Weakness (ICD-10 - R53.1) 07/23/2024 Dizziness (ICD-10 - R42) Plan Of Treatment No Information Progress Notes * OMEGA WASHINGTONOB:1995 (29 yo M)Acc No.[id number]:07/23/2024 EGD/MAC Patient: SHAVONNE PAINTER Provider: Demi Concepcion MD :1995 A ge:28 Y S ex:Male Date:07/23/2024 Address:[address] [place] [address] [address], [place], [place] Pcp:Jovany Barrera Subjective: * Chief Complaints: * 1 . Gerd. * Medical History: Objective: * Vitals: Assessment: * Assessment: 1. G heidi-esophageal reflux disease without esophagitis - K21.9 (Primary) 2 .?Weakness - R53.1 3 . D tmai - R42 Plan: * Treatment: * Procedure Codes: 4 3239 UPPER GI ENDOSCOPY, BIOPSY * * The named appointment provid er may or may not be the originator of this progress note, and it is not deemed complete until electronically signed by the appointment provider. Sign off status: Pending * Provider: Demi Concepcion MD Date: 0 07/23/2024 Generated for Sandy morrison/Basilio/Heshamitting on: 1 09:25 AM EDT
--- OUTSIDE RECORDS SUMMARY | 2025-01-08 05:40 | XMS_ITS ---
Author Organization [facility] Address [address] [place] [phone] Care Team Providers Care Relief Charge Nurse Name Role Phone Jovany Barrera Primary Care Provider Unavailab Keith Mendoza [phone] REASON FOR VISIT Patient presents today for GERD Encounters Encounter Location Date Provider Diagnosis [facility] [address] [place] [phone] 01/08/2025 Keith Concepcion Plan Of Treatment No Information Progress Notes * EFRAIN WASHINGTONSHEYLAOB:1995 (29 yo M)Acc No.[id number]:01/08/2025 Progress Notes Patient: SHAVONNE PAINTER Provider: Demi Concepcion MD :1995 A ge:29 Y S ex:Male Date:01/08/2025 Address:[address] [place] [address] [address], [place], [place] Pcp:Jovany Barrera Subjective: * Chief Complaints: * 1 . Patient presents today for GERD. * Medical History: Objective: * Vitals: Assessment: Plan: * Treatment: * * The named appointment provid er may or may not be the originator of this progress note, and it is not deemed complete until electronically signed by the appointment provider. Sign off status: Pending * Provider: Demi Concepcion MD Date: Generated for Mollyi ng/Famaxig/eTransmitting on: 09:25 AM EDT
--- NOTE | 2025-01-09 08:55 | A.OFFVIS_ITS ---
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 He is a pleasant and active 29-year-old male who likes to exercise both cardio as well as weight training. He also is very conscious about his overall health. He said that for about 10 years he has been getting these symptoms that he can recall. One episode few years ago he had actually passed out. He was watching 1 of his friends getting a tattoo and he was standing up, he got lightheadedness and then got sick/nauseous and then passed out. The total episode of loss of consciousness for few sec. He woke up and was right away aware of his surroundings. There were no seizure-like activities. He said he gets these episodes frequently but there is variable pattern. There was no clear triggers that he has identified. Symptoms happen when he is sitting down when he feels nauseous and dizzy. Symptoms usually past after a minute or 2. He has not had an actual syncopal episodes since that episode. He said he drinks about 48 oz of water. He does not have much salt intake. Denies any significant alcohol use or caffeine use. Family history of 1 of his uncles dying suddenly in his 60s. He denies any oiwe-zqd-fscnpbh supplements except for magnesium. 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 Current occupational exposures/hazards: No Cognitive needs: No Hearing needs: No Vision needs: No Review of Systems Const Denies chills, Reports daytime sleepiness, Denies fatigue, Denies fever(s), Denies frequent falls, Denies poor appetite, Denies snoring, Denies stops breathing during sleep, Reports weakness, Denies weight gain and Reports weight loss Eyes Denies loss of vision ENT Reports dizziness and Denies hearing loss Card Denies chest pain, Denies claudication, Denies leg edema, Reports lightheadedness, Denies palpitations, Denies dyspnea, Denies dyspnea on exertion and Denies orthopnea Resp Denies cough, Denies excessive phlegm production, Denies dyspnea, Denies dyspnea on exertion, Denies snoring and Denies wheezing GI Denies abdominal pain, Denies hematochezia, Denies change in bowel habits, Denies nausea and Denies vomiting Reports dysuria and Reports urinary frequency Musc Denies arthralgias, Denies muscle weakness and Denies numbness Skin/Breast Denies nail changes and Denies rash Neuro Denies Abnormal speech present, Reports dizziness, Denies frequent falls, Denies loss of vision, Denies memory loss, Denies numbness and Reports weakness Psych Denies depression and Denies memory loss Endo Denies fatigue and Denies palpitations Yair/Lymph Reports easy bruising and Reports other (anemia) Aller/Immun Denies wheezing Physical Exam Vital Signs: Last Vital Signs Pulse 69 01/09/25 09:09 BP 125/72 01/09/25 09:09 BMI result Body Mass Index 19.7 Const General: cooperative, healthy appearing, comfortable, no acute distress, alert, awake and Physically active Nutritional Appearance: thin Orientation/consciousness: patient oriented x3 Limitations: no limitations HEENT Head: Yes normocephalic and Yes atraumatic Neck Neck: Yes trachea midline, Yes supple and Yes no JVD Resp Effort & Inspection: normal respiratory effort Auscultation: clear to auscultation bilaterally Cardio Jugular venous distension: no JVD Rate: regular rate Rhythm: regular rhythm Heart sounds: S1 normal heart sound present, S2 normal heart sound present, no click, no gallops, no murmurs (Including with provocative maneuvers) and no rubs GI Auscultation: normal bowel sounds Skin General skin exam: no rashes or lesions noted Neuro General: patient oriented x3 and no focal motor deficits Speech: No Abnormal speech present Extrem General: Yes no clubbing, cyanosis or edema Psych Appearance: grossly normal Office Procedures EKG Details: EKG shows normal sinus rhythm with sinus arrhythmia with no pre-excitation or QT prolongation [id number], Complete Assessment & Plan Assessment & Plan (1) Lightheadedness: Code(s): R42 - Dizziness and giddiness Category: Medical Plan: Patient with longstanding episodes of lightheadedness, and 1 episode of syncope. Symptom appear to be either vasovagal or postural orthostatic tachycardia syndrome. Will need to further investigate. Will start with evaluation for structural heart disease with echocardiogram. Will also suggest a 7 day Holter monitor to assess for any arrhythmias though less likely. The most important test is going to be tilt-table test to evaluate autonomic function. This will be done in near future. We discussed about mechanism of both vasovagal as well as postural orthostatic tachycardia syndrome. Both of them are triggered by relative hypovolemia and dehydration. I have advised him to increase his water and salt intake. Avoidance of stimulants was discussed which he is not doing currently. He is advised to maintain activity level as tolerated. Overall benign nature of both conditions were discussed. Treatment based on actual response to upright tilt table testing. Will follow with him in 3 months time. Thank you for allowing me to partake in his care Coding Level of Care Code New Pt Level 4 (44543) Complex EM visit Add On G2211 Diagnoses Lightheadedness R42 CPT Codes EKG - CPT: 58157-[id number], Complete ([id number])
[2025-01-09 08:56] VITALS: BP 118/59; PULSE 64; BMI 19.7
[2025-01-09 09:09] VITALS: BP 125/72; BP 126/69; PULSE 64; PULSE 69
--- OUTSIDE RECORDS SUMMARY | 2025-01-09 09:25 | XMS_ITS | Clinical Summary ---
Author Organization [facility] Address [address] [place] [id number] Phone Care Team Providers Care Retort Setter Name Role Phone Unavailable Primary Care Provider [...]
--- OUTSIDE RECORDS SUMMARY | 2025-01-09 09:25 | XMS_ITS | Encounter Summary ---
Author Organization [facility] Address [address] [place] [address] Phone Care Team Providers Care Assembler Tester Name Role Phone Keith Cowart MD Primary Care Provider [phone] Encounter Details Date Type Department Care Team (Late st Contact Info) Description 08/14/2017 Conversion Encounter [facility] [address] [place] [address] Social History Tobacco Use Types Packs/Day Years [...] on filedocumented in this encounter Care Teams Assembler Tester Relationship Specialty Start Date End Date Keith Cowart MD [address] [place] [address] PCP - General Pediatrics 10/11/17 12/27/23 documented as of this encounter
--- OUTSIDE RECORDS SUMMARY | 2025-01-09 09:25 | XMS_ITS | Patient Health Record ---
Author Organization [facility] Address [address] [place] [phone] Care Team Providers Care Interior Design Professional Name Role Phone Jovany Barrera Primary Care Provider Unavailab Keith Mendoza Unavailable [phone] Allergies Allergen (clinical drug ingredient) Drug/Non Drug Allergy documented on EMR Reaction Allergy Type Onset Date Status Dust Mites Unknown Allergy Active Results Component Value Reference Range Notes Pathology Reviewed date:12/31/2024 10:37:49 PM Interpretation: Performing Lab:[facility], [address] [place] [id number] Notes/Report: Reason For Referral Referring Provider First Name Jovany Referring Provider Last Name Holly Referred Organization [facility] Referred Provider Keith Concepcion Referred Address [address] [place] [address],[place] [address] [place] [phone], Referred Provider Specialty Gastroentero logy Referral Priority Routine Medications Medication SIG (Take, Route, Fr equency, Duration) Notes Start Date End Date Status Famotidine 20 MG TAKE 1 TABLET BY ALEJANDRA TWICE DAILY Oral; Duration: 30 Days Active Tadalafil 10 MG 1 tablet as needed O rally Once a day; Duration: 30 day(s) 06/27/2024 Active Immunizations Vaccine Route [...] Status Risk Notes Problem Gastroesophageal reflux disease ([id number]) GERD (gastroeso phageal reflux disease) (K21.9) Active confirmed Vital Signs Temperature 97.5 degrees Fahrenheit 06/27/2024 Blood pressure diastolic 01 mm Hg 06/27/2024 Height 71 in 06/27/2024 Blood pressure systolic 001 mm Hg 06/27/2024 Weight 140.4 lbs 06/27/2024 BMI 19.58 kg/m2 06/27/2024 Procedures Procedure Date Ordered Date Performed Result Body Sit e UPPER GI ENDOSCOPY 06/27/2024 N/A Encounters Encounter Location Date Provider Diagnosis [facility] [address] [place] [id number] 07/23/2024 Keith Concepcion Gastro-esophageal reflux disease without esophagitis K21.9 ; Weakness R53.1 and Dizziness R42 [facility] [address] [address] 06/27/2024 Keith Concepcion GERD (gastroesophageal reflux disease) K21.9 and Dizziness R42 [facility] [address] [phone] 07/30/2024 Keith Concepcion [facility] [address] [phone] 12/31/2024 Keith Concepcion Assessments Encounter Date Diagnosis (ICD [...] further evaluation by either a neurologist or senior business consultant to do some autonomic testing such as [...] with a Tilt Table Test with a Improvement Analyst or Neurologist for things like POTS disease [...] further evaluation by either a neurologist or senior business consultant to do some autonomic testing such as [...] Name Order Date UPPER GI ENDOSCOPY 06/27/2024 Insurance Providers Payer Name Payer Address Payer Phone Subscriber Number Group Number Insured Name Patient Relationship to Insured Coverage Start Date Coverage End Date [employer] [id number] [employer] [place] [id number] PARDEEP [place] Self - patient is the insured
== END 2025-01-09 09:34 | disposition home or self-care (01) ==
PROVIDERS: PCP Family Medicine; Visit Provider Internal Medicine Cardiovascular Disease
DX: R42 Dizziness and giddiness (principal)
CPT/HCPCS: 93010; 99204

== ENCOUNTER → 2025-01-09 08:49 | Outpatient (BNVA) | payer OTHER, SELFPAY | PROVIDERS: PCP Family Medicine; Visit Provider Internal Medicine Cardiovascular Disease | DX: R42 Dizziness and giddiness (principal) | CPT/HCPCS: 93005 ==